=== PATIENT | female | born 1990 | race Caucasian/White ===

== ENCOUNTER 2017-01-26 12:01 | Emergency (ER) | payer SELFPAY ==
[2017-01-26] MEDS ORDERED: ACETAMINOPHEN 325 MG TABLET PO ONE (12:54)
[2017-01-26] MEDS ORDERED: NORMAL SALINE 1000 ML 1,000 ML IV ONE (12:54)
--- NOTE | 2017-01-26 13:01 | ER Document Report ---
ED Medical Screen (RME) - General Chief Complaint: Headache Stated Complaint: HEADACHE Time Seen by Provider: 01/26/17 12:54 Notes: Patient states since Wednesday she has had a progressive headache that is bilateral frontal as well as facial pain. She also states that her neck is swollen that it is red in the front and that it is very tender. She states she cannot move her neck in any direction. She states she is also had vomiting and some subjective fever and chills. She is also had cough and congestion. TRAVEL OUTSIDE OF THE [place] IN LAST 30 DAYS: No - Related Data Allergies/Adverse Reactions: No Known Allergies Allergy (Verified 01/26/17 12:14) Past Medical History Renal/ Medical History: Denies: Hx Peritoneal Dialysis - Immunizations Hx Diphtheria, Pertussis, Tetanus Vaccination: No Physical Exam - Vital signs Vitals: Temp Pulse Resp BP Pulse Ox 99.1 F 125 H 20 118/81 86 L 01/26/17 12:15 01/26/17 12:15 01/26/17 12:15 01/26/17 12:15 01/26/17 12:15 Course - Vital Signs Vital signs: Temp Pulse Resp BP Pulse Ox 99.1 F 125 H 20 118/81 86 L 01/26/17 12:15 01/26/17 12:15 01/26/17 12:15 01/26/17 12:15 01/26/17 12:15
[2017-01-26] MEDS ORDERED: MORPHINE SULFATE 10 MG/ML INJ IV ONE (13:42)
[2017-01-26 13:48] LABS: VENOUS BLOOD BASE EXCESS 4.6 mmol/L; VENOUS BLOOD HCO3 30.9 mmol/L (20-32); VENOUS BLOOD PCO2 53.7 mmHg (35-63); VENOUS BLOOD PH 7.38 (7.30-7.42)
[2017-01-26 13:51] LABS: PROTHROMBIN TIME 14.9 SEC (11.4-15.4)
[2017-01-26 14:09] LABS: ALANINE AMINOTRANSFERASE 40 U/L (9-52); ALBUMIN 3.6 g/dL (3.5-5.0); ALKALINE PHOSPHATASE 130 U/L (38-126); ANION GAP 12 (5-19); ASPARTATE AMINO TRANSFERASE 41 U/L (14-36); BILIRUBIN,DIRECT 0.4 mg/dL (0.0-0.4); BILIRUBIN,TOTAL 0.7 mg/dL (0.2-1.3); BLOOD UREA NITROGEN 12 mg/dL (7-20); CALCIUM 9.8 mg/dL (8.4-10.2); CARBON DIOXIDE 29 mmol/L (22-30); CHLORIDE 96 mmol/L (98-107); CREATININE RESULT 0.73 mg/dL (0.52-1.25); GLUCOSE 105 mg/dL (75-110); POTASSIUM 3.3 mmol/L (3.6-5.0); SODIUM 137.4 mmol/L (137-145); TOTAL PROTEIN 6.6 g/dL (6.3-8.2)
[2017-01-26] MEDS ORDERED: CLINDAMYCIN 300 MG/D5W RTU 300 MG/50 ML RTUPB IV ONE (14:09)
--- NOTE | 2017-01-26 14:16 | ER Document Report ---
ED General - General Chief Complaint: Headache Stated Complaint: HEADACHE Time Seen by Provider: 01/26/17 12:54 Mode of Arrival: Ambulatory Information source: Patient, Relative Notes: 26-year-old female presents with complaints of fever body aches sore throat headaches nausea. Symptoms have been ongoing intermittently for the past month over the past 3-4 days symptoms have worsened neck pain has worsened. Patient admits difficulty swallowing TRAVEL OUTSIDE OF THE [place] IN LAST 30 DAYS: No - HPI Onset: Other Onset/Duration: Persistent, Worse Quality of pain: Achy Severity: Moderate Pain Level: 4 Associated symptoms: Body/muscle aches, Productive cough, Fever, Headache, Nausea, Vomiting, Sinus pain/drainage, Shortness of breath, Sweating, Weakness Exacerbated by: Denies Relieved by: Denies Similar symptoms previously: No Recently seen / treated by doctor: No - Related Data Allergies/Adverse Reactions: No Known Allergies Allergy (Verified 01/26/17 12:14) Home Medications: Current Home Medications Ashwagandha Root 1 tab PO DAILY 01/26/17 [History] Cholecalciferol (Vitamin D3) [Vitamin D3 5000 unit Capsule] 10,000 unit PO DAILY 01/26/17 [History] Cyanocobalamin (Vitamin B-12) [Vitamin B-12 SL 1000 mcg Tablet] 2,000 mcg SL DAILY 01/26/17 [History] [place]'s Wort 150 mg PO DAILY 01/26/17 [History] Past Medical History - Social History Smoking Status: Never Smoker Cigarette use (# per day): No Chew tobacco use (# tins/day): No Smoking Education Provided: No Family History: Reviewed & Not Pertinent Patient has suicidal ideation: No Patient has homicidal ideation: No Renal/ Medical History: Denies: Hx Peritoneal Dialysis - Immunizations Hx Diphtheria, Pertussis, Tetanus Vaccination: No Review of Systems - Review of Systems Notes: REVIEW OF SYSTEMS: CONSTITUTIONAL : Admits fevers chills EENT: Admits to difficulty swallowing painful neck CARDIOVASCULAR: Denies chest pain. Denies palpitations or racing or irregular heart beat. Denies ankle edema. RESPIRATORY: Admits to cough productive GASTROINTESTINAL: Denies abdominal pain or distention. Denies nausea, vomiting , or diarrhea. Denies blood in vomitus, stools, or per rectum. Denies black, tarry stools. Denies constipation. GENITOURINARY: Denies difficulty urinating, painful urination, burning, frequency, blood in urine, or discharge. FEMALE GENITOURINARY: Denies vaginal bleeding, heavy or abnormal periods, irregular periods. Denies vaginal discharge or odor. MUSCULOSKELETAL: Admits to body aches SKIN: Denies rash, lesions or sores. HEMATOLOGIC : Denies easy bruising or bleeding. LYMPHATIC: Denies swollen, enlarged glands. NEUROLOGICAL: Admits headache PSYCHIATRIC: Denies anxiety or stress. Denies depression, suicidal ideation, or homicidal ideation. ALL OTHER SYSTEMS REVIEWED AND NEGATIVE. PHYSICAL EXAMINATION: GENERAL: Very ill-appearing 26-year-old female HEAD: Atraumatic, normocephalic. EYES: Pupils equal round and reactive to light, extraocular movements intact, conjunctiva are normal. ENT: exudates JVD NECK: Bilateral lymphadenopathy tenderness on palpation LUNGS: Breath sounds clear to auscultation bilaterally and equal. No wheezes rales or rhonchi. HEART: Tachycardic ABDOMEN: Soft, nontender, nondistended abdomen. No guarding, no rebound. No masses appreciated. Female : deferred Musculoskeletal: Normal range of motion, no pitting or edema. No cyanosis. NEUROLOGICAL: Cranial nerves grossly intact. Normal speech, normal gait. Normal sensory, motor exams PSYCH: Normal mood, normal affect. SKIN: Anterior neck is extremely erythematous Dictation was performed using [employer] voice recognition software Physical Exam - Vital signs Vitals: Temp Pulse Resp BP Pulse Ox 99.1 F 125 H 20 118/81 86 L 01/26/17 12:15 01/26/17 12:15 01/26/17 12:15 01/26/17 12:15 01/26/17 12:15 Course - Re-evaluation Re-evalutation: 01/26/17 14:18 This is an extremely ill-appearing 26-year-old female my concerns are for a abscess in the anterior neck versus meningitis versus tonsillitis. Lab work pending 01/26/17 16:12 Patient had initially been accepted by the hospitalist but after he evaluated the patient is concerned about myocarditis versus endocarditis he requests transfer Susy and [facility] paged both paged 01/26/17 16:30 Susy Augustin accept but 25 patients waiting 01/26/17 16:32 01/26/17 16:33 New [facility] paged 01/26/17 16:40 [facility] unsure but believes it is a strep viridens requests I add vancomycin 01/26/17 16:42 01/26/17 16:[address] [facility] [address] Yoder will accept for rapid transport 01/26/17 17:28 Gabrielcherise called back I explained to them we have accepting physician, 01/26/17 17:54 Patient is stable at this time heart rate is now 109 - Vital Signs Vital signs: Temp Pulse Resp BP Pulse Ox 99.1 F 125 H 20 124/75 98 01/26/17 12:15 01/26/17 12:15 01/26/17 17:01 01/26/17 17:01 01/26/17 17:01 - Laboratory Result Diagrams: 01/26/17 14:20 01/26/17 13:28 Laboratory results interpreted by me: 01/26/17 01/26/17 01/26/17 13:28 14:20 16:20 WBC 18.3 H Hgb 11.9 L Hct 35.3 L Seg Neuts % (Manual) 79 H Band Neutrophils % 10 H Lymphocytes % (Manual) 5 L Abs Neuts (Manual) 16.3 H Potassium 3.3 L Chloride 96 L AST 41 H Alkaline Phosphatase 130 H Urine Blood SMALL H - Diagnostic Test Radiology reviewed: Image reviewed, Reports reviewed - EKG Interpretation by Me EKG shows normal: Sinus rhythm, [place], Intervals, QRS Complexes Rate: Tachycardia Critical Care Note - Critical Care Note Total time excluding time spent on procedures (mins): 34 Comments: 34 minutes of critical care time spent in direct contact evaluating and reevaluating the patient, treating symptoms, reviewing labs and studies and speaking with family and consultants excluding any procedures Discharge - Discharge Clinical Impression: Neck pain Sepsis Qualifiers: Qualified Code(s): A41.9 - Cellulitis Qualifiers: Site of cellulitis: neck Qualified Code(s): L03.221 - Cellulitis of neck Condition: Fair Disposition: ADMITTED INPATIENT Admitting Provider: Hospitalist Unit Admitted: Telemetry
[2017-01-26 14:45] LABS: HEMATOCRIT 35.3 % (36.0-47.0); HEMOGLOBIN 11.9 g/dL (12.0-15.5); HGB HCT DIFFERENCE 0.4; MEAN CORPUSCULAR HEMOGLOBIN 30.8 pg (27.0-33.4); MEAN CORPUSCULAR HGB CONC 33.7 g/dL (32.0-36.0); MEAN CORPUSCULAR VOLUME 91 fl (80-97); RED BLOOD COUNT 3.87 10^6/uL (3.72-5.28); RED CELL DISTRIBUTION WIDTH 13.5 % (11.5-14.0); WHITE BLOOD COUNT 18.3 10^3/uL (4.0-10.5)
[2017-01-26 15:07] LABS: BAND NEUTROPHILS % (MANUAL) 10 % (3-5); BASOPHILS % (MANUAL) 0 % (0-2); EOSINOPHILS % (MANUAL) 2 % (0-6); LYMPHOCYTES % (MANUAL) 5 % (13-45); TOTAL CELLS COUNTED 100
[2017-01-26 15:08] LABS: TOXIC GRANULATION 1+; TOXIC VACUOLATION PRESENT
[2017-01-26 15:10] LABS: POLYCHROMASIA SLIGHT
[2017-01-26] MEDS: NORMAL SALINE 1000 ML 1,000 ML IV PRN ×2 (15:16→16:10)
[2017-01-26] MEDS ORDERED: HYDROMORPHONE HCL INJ/PF 2 MG/ML AMPULE IV ONE ×3 (15:19→19:25)
--- NOTE | 2017-01-26 15:37 | RADIOLOGY REPORT (SQ) ---
EXAM DESCRIPTION: CT SOFT TISSUE NECK WITH COMPLETED DATE/TIME: 01/26/2017 2:53 pm REASON FOR STUDY: fever, throat pain headache 1 month history not feeling right, anterior neck pain COMPARISON: None. TECHNIQUE: Post IV contrasted scanning from skull base through lung apices with review of bone, soft tissue and lung windows. Reconstructed coronal and sagittal MPR images reviewed. All images stored on PACS. All CT scanners at this facility use dose modulation, iterative reconstruction, and/or weight based d osing when appropriate to reduce radiation dose to as low as reasonably achievable (ALARA). [facility]: Dose Right [facility]: CareDose [facility]: Dose Right [facility]: Teradose 4D [facility]: [employer] CONTRAST TYPE AND DOSE: contrast/concentration: Isovue 370.00 mg/ml; Total Contrast Delivered: 75.0 ml; Total Saline Delivered: 44.3 ml RENAL FUNCTION: None required. The patient is less than 50 years old. RADIATION DOSE: 8.9 mGy . LIMITATIONS: None. FINDINGS: On axial image S 67 through 100, areas skin thickening and stranding in the subcutaneous f at along the lower anterior neck in the suprasternal notch region. There is some inflammatory strand ing of the fat in the anterior aspect of the thoracic inlet/upper mediastinum on axial images 89-103. No well circumscribed abscess. No sternoclavicular joint erosions. There is mild cervical adenopathy left greater than right likely reactive. On the right side, index lymph nodes are as follows: Right carotid space 1.5 x 1.2 cm axial image 40 Right carotid space 1.1 x 0.6 cm axial image 48 Right carotid space 0.8 x 0.5 cm axial image 55 Index left neck lymph nodes are as follows: Left posterior triangle 1.4 x 0.6 cm image 33 Left posterior triangle 2 x 0.9 cm image 36 Left carotid space 1.2 x 0.9 cm image 42 Left carotid space 1.5 x 0.8 cm image 48 Left carotid space 1.4 x 0.6 cm image 53 These findings were discussed with Dr. Kincaid in the emergency room SKULL BASE: Intact. MAJOR SALIVARY GLANDS: No solid or cystic masses. No inflammatory changes. LYMPHADENOPATHY: As above MUCOSAL MASSES OR ASYMMETRY: No mucosal masses or asymmetry. No inflammatory change or abscess in th e parapharyngeal fat. No prevertebral phlegmon or edema LARYNX/CORDS: No abnormal findings. VASCULAR STRUCTURES: The major vessels are patent. No superficial venous thrombosis is seen LUNG APICES: Clear. BONES: Intact. THYROID: Normal size. No masses. PARANASAL SINUSES: Clear. OTHER: No other significant finding. IMPRESSION: Cellulitis in the soft tissues of the low anterior neck in the region of the sternoclavi cular notch. No aggressive bony erosions worrisome for osteomyelitis or septic arthritis at the ster noclavicular joints. Mild cervical adenopathy. Send TECHNICAL DOCUMENTATION: JOB ID: [id number] Quality ID # [id number]: Final reports with documentation of one or more dose reduction techniques (e.g., Au tomated exposure control, adjustment of the mA and/or kV according to patient size, use of iterative reconstruction technique) 2010 [employer]- All Rights Reserved
--- NOTE | 2017-01-26 15:41 | RADIOLOGY REPORT (SQ) ---
EXAM DESCRIPTION: CT HEAD WITHOUT AND WITH CONTRAST COMPLETED DATE/TIME: 01/26/2017 2:53 pm REASON FOR STUDY: fever, throat pain headache COMPARISON: Soft tissue neck CT with contrast same date TECHNIQUE: Axial images acquired through the brain without and with intravenous contrast. Images rev iewed with bone, brain and subdural windows. Images stored on PACS. All CT scanners at this facility use dose modulation, iterative reconstruction, and/or weight based d osing when appropriate to reduce radiation dose to as low as reasonably achievable (ALARA). [facility]: Dose Right [facility]: CareDose [facility]: Dose Right [facility]: Teradose 4D [facility]: [employer] CONTRAST TYPE AND DOSE: 75 mL IV Isovue 370- low osmolar. RENAL FUNCTION: Creatinine 0.73 RADIATION DOSE: Up-to-date CT equipment and radiation dose reduction techniques were employed. CTDIv ol: 8.9 - 64.6 mGy. DLP: 2596 mGy-cm.. LIMITATIONS: None. FINDINGS: VENTRICLES: Normal size and contour. CEREBRUM: No masses. No hemorrhage. No midline shift. Normal kinsey/white matter differentiation. No ev idence for acute infarction. No enhancing lesions. CEREBELLUM: No masses. No hemorrhage. No alteration of density. No evidence for acute infarction. No enhancing lesions. EXTRA-AXIAL SPACES: No fluid collections. No enhancing lesions. ORBITS AND GLOBE: No intra- or extraconal masses. Normal contour of globe without masses. CALVARIUM: No fracture. PARANASAL SINUSES: No fluid or mucosal thickening. SOFT TISSUES: No mass or hematoma. OTHER: No other significant finding. IMPRESSION: NORMAL BRAIN CT WITHOUT AND WITH CONTRAST. TECHNICAL DOCUMENTATION: JOB ID: [id number] Quality ID # [id number]: Final reports with documentation of one or more dose reduction techniques (e.g., Au tomated exposure control, adjustment of the mA and/or kV according to patient size, use of iterative reconstruction technique) 2010 [employer]- All Rights Reserved
--- NOTE | 2017-01-26 15:41 | RADIOLOGY REPORT (SQ) ---
EXAM DESCRIPTION: CHEST PA/LAT COMPLETED DATE/TIME: 01/26/2017 2:56 pm REASON FOR STUDY: fever COMPARISON: None. EXAM PARAMETERS: NUMBER OF VIEWS: two views TECHNIQUE: Digital Frontal and Lateral radiographic views of the chest acquired. RADIATION DOSE: NA LIMITATIONS: none FINDINGS: LUNGS AND PLEURA: No opacities, masses or pneumothorax. No pleural effusion. MEDIASTINUM AND HILAR STRUCTURES: No masses or contour abnormalities. HEART AND VASCULAR STRUCTURES: Heart normal size. No evidence for failure. BONES: No acute findings. HARDWARE: None in the chest. OTHER: No other significant finding. IMPRESSION: NO SIGNIFICANT RADIOGRAPHIC FINDING IN THE CHEST. TECHNICAL DOCUMENTATION: JOB ID: [id number] [employer] All Rights Reserved
[2017-01-26] MEDS ORDERED: VANCOMYCIN HCL INJ 1000 MG VIAL IV ONE (16:41)
[2017-01-26 16:43] LABS: APPEARANCE,URINE CLEAR; BILIRUBIN,URINE NEGATIVE (NEGATIVE); GLUCOSE, URINE NEGATIVE (NEGATIVE); KETONES,URINE NEGATIVE (NEGATIVE); LEUKOCYTE ESTERASE,URINE NEGATIVE (NEGATIVE); NITRITE,URINE NEGATIVE (NEGATIVE); PROTEIN,URINE NEGATIVE (NEGATIVE); URINE SPECIFIC GRAVITY 1.032; UROBILINOGEN,URINE NEGATIVE mg/dL (<2.0)
[2017-01-26 17:01] LABS: URINE BARBITURATES SCREEN NEGATIVE; URINE METHADONE SCREEN NEGATIVE; URINE OPIATES LOW UNCONFIRMED POSITIVE; URINE PHENCYCLIDINE SCREEN NEGATIVE
--- NOTE | 2017-01-26 17:08 | PDOC CONSULTATION ---
Consultation Consult Date: 01/26/17 Attending physician:: OSCAR SEVERINO Consult reason:: Anterior Neck Cellulitis History of Present Illness Admission Date/PCP: 01/26/17 16:04 No PCP Patient complains of: Shortness of breath, fever, Headache, difficulty swallowing for 1 week History of Present Illness: ROLANDA ESCBOAR is a 26 year old female who presented to the hospital from home for shortness of breath, difficulty swallowing, and neck swelling that started on Wednesday. Pt states that she has been sick for one month prior to presenting to the hospital. Pt states that she had fever and fatigue during that month. Pt states that she has noticed that she has become more short of breath with exertion ie walking up stairs and walking around house. Pt states that she did not go to a physician due to not having insurance. Pt became agitated stating that she has been asked these questions before and does not know why I am asking these questions. Pt then stated that her head is hurting. Pt was asked if she had sore throat, chills, nausea, vomiting and pt stated that she does not remember because it has been to long. Pt states that she came today because she noted that she had worsening neck swelling and difficulty swallowing. 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 Pt states that she has had a lot of problems with sinus drainage and congestion. Pt states that nasal drainage is orange/ green in color. Pt states that she has a severe headache and would like to be left alone. Past Medical History Cardiac Medical History: Reports: None Pulmonary Medical History: Reports: None EENT Medical History: Reports: None Neurological Medical History: Reports: Migraine Endocrine Medical History: Reports: None Renal/ Medical History: Reports: None Malignancy Medical History: Reports: None GI Medical History: Reports: None Skin Medical History: Reports: None Psychiatric Medical History: Reports: None Infectious Medical History: Reports: None Past Surgical History Past Surgical History: Reports: None Social History Information Source: Patient Lives with: Family Smoking Status: Never Smoker Frequency of Alcohol Use: Rare Hx Recreational Drug Use: No Drugs: None Hx Prescription Drug Abuse: No Family History Family History: Reviewed & Not Pertinent Parental Family History Reviewed: Yes Children Family History Reviewed: NA Sibling(s) Family History Reviewed.: Yes Medication/Allergy Allergies/Adverse Reactions: No Known Allergies Allergy (Verified 01/26/17 12:14) Review of Systems Constitutional: PRESENT: fatigue, fever(s), headache(s), weakness Eyes: PRESENT: other - +eye sensitivity Ears: ABSENT: hearing changes Nose, Mouth, and Throat: PRESENT: sore throat Breasts: PRESENT: as per HPI, other Cardiovascular: PRESENT: dyspnea on exertion, other - shortness of breath Respiratory: PRESENT: dyspnea Gastrointestinal: ABSENT: abdominal pain, constipation, diarrhea, hematemesis, hematochezia, nausea, vomiting Genitourinary: ABSENT: dysuria, hematuria Musculoskeletal: PRESENT: other - +neck pain and swelling Neurological: ABSENT: abnormal gait, abnormal speech, confusion, dizziness, focal weakness, syncope Psychiatric: ABSENT: anxiety, depression, homidical ideation, suicidal ideation Endocrine: ABSENT: cold intolerance, heat intolerance, polydipsia, polyuria Hematologic/Lymphatic: ABSENT: easy bleeding, easy bruising Physical Exam Vital Signs: Temp Pulse Resp BP Pulse Ox 99.1 F 125 H 18 121/82 100 01/26/17 12:15 01/26/17 12:15 01/26/17 15:34 01/26/17 15:34 01/26/17 15:34 General appearance: PRESENT: mild distress, well-developed, well-nourished, other - JVD noted at 45 degree incline, tearful Head exam: PRESENT: atraumatic, normocephalic Eye exam: PRESENT: conjunctiva pink, EOMI. ABSENT: scleral icterus Ear exam: PRESENT: normal external ear exam Mouth exam: PRESENT: other - + erythema of neck with LAD anterior and posterior LAD Throat exam: PRESENT: tonsillar erythema Neck exam: PRESENT: JVD - at 45 degree incline Respiratory exam: PRESENT: accessory muscle use, tachypnea Cardiovascular exam: PRESENT: tachycardia, other - JVD at 45 degree incline Vascular exam: PRESENT: normal capillary refill GI/Abdominal exam: PRESENT: normal bowel sounds, soft. ABSENT: distended, guarding, mass, organolmegaly, rebound, tenderness Rectal exam: PRESENT: deferred Neurological exam: PRESENT: alert, awake, oriented to person, oriented to place , oriented to time, oriented to situation, CN II-XII grossly intact Psychiatric exam: PRESENT: agitated Skin exam: PRESENT: other - erythema of anterior neck Results Impressions: Chest X-Ray 01/26/17 13:42 IMPRESSION: NO SIGNIFICANT RADIOGRAPHIC FINDING IN THE CHEST. Head CT 01/26/17 14:10 IMPRESSION: NORMAL BRAIN CT WITHOUT AND WITH CONTRAST. Soft Tissue Neck CT 01/26/17 14:10 IMPRESSION: Cellulitis in the soft tissues of the low anterior neck in the region of the sternoclavicular notch. No aggressive bony erosions worrisome for osteomyelitis or septic arthritis at the sternoclavicular joints. Mild cervical adenopathy. Send Assessment & Plan - Diagnosis (1) Sepsis Qualifiers: Qualified Code(s): A41.9 - Sepsis, unspecified organism Is this a current diagnosis for this admission?: Yes Plan: Suspect GBS vs Viral etiology: Pt was given Vancomycin and Clindamycin. (2) Cellulitis Qualifiers: Site of cellulitis: neck Qualified Code(s): L03.221 - Cellulitis of neck Is this a current diagnosis for this admission?: Yes Plan: Pt given Vancomycin and Clindamycin. (4) Endocarditis Qualifiers: Endocarditis type: unspecified Is this a current diagnosis for this admission?: Yes Plan: Concern for Endocarditis: Pt with JVD on exam. Pt needs state echo. (5) Leukocytosis Qualifiers: Leukocytosis type: unspecified Qualified Code(s): D72.829 - Elevated white blood cell count, unspecified Is this a current diagnosis for this admission?: Yes Plan: Pt given Vanco and Clindamycin. (6) Hypokalemia Is this a current diagnosis for this admission?: Yes Plan: Per ER - Time Time Spent: 30 to 50 Minutes - Recommendated transfer to Tertiary Facility due to Concern for Endocarditis vs Cardiomyopathy. Pt would also benefit from ID.
[2017-01-26 19:48] VITALS: BP 107/67
--- NOTE | 2017-01-27 19:54 | EKG REPORT ---
SEVERITY:- BORDERLINE ECG - SINUS TACHYCARDIA PROBABLE LEFT ATRIAL ABNORMALITY BORDERLINE T ABNORMALITIES, ANTERIOR LEADS : Confirmed by: Antonio Hendrix MD 27-Jan-2017 19:53:59
== END 2017-01-26 19:47 | disposition short-term general hospital (02) ==
LOC: ER 12:01 → UNDOADMIN 16:04 → EH 16:04 → UNDOADMIN 17:15 → EH 17:15 → UNDODISIN 19:46 → EH 19:47 → ER 19:47
DX: R51 Headache (principal); A41.9 Sepsis, unspecified organism; L03.221 Cellulitis of neck; R11.0 Nausea; M79.1 Myalgia; D72.829 Elevated white blood cell count, unspecified; E87.6 Hypokalemia; I38 Endocarditis, valve unspecified
CPT/HCPCS: 93005; 96376; 99291; 96361; 96375; 96365; 96366; 96367; 36415; 87040; 87070; 87086; 87880; 84443; 85025; 85610; 81025; 86308; 80053; 81001; 80307; 82803; 83605; 71020; 70460; 70491; 93010; J3490; J2270; J1170; J7030; J3370

== ENCOUNTER → 2019-06-28 | Outpatient (CLI) | payer SELFPAY ==
--- NOTE | 2019-06-28 14:54 | RADIOLOGY REPORT (SQ) ---
EXAM DESCRIPTION: U/S LF1BPCA TRNABD 1GES W/ODOP COMPLETED DATE/TIME: 06/28/2019 12:33 pm REASON FOR STUDY: Z34.02 ENCNTR FOR SUPRVSN OF NORMAL FIRST PREG, SECOND TRIMESTER Z34.02 ENCNTR FO R SUPRVSN OF NORMAL FIRST PREG, SECOND TRIME. . No current complaints with the . Patient does take long-term antiseizure medication. COMPARISON: None. TECHNIQUE: Transabdominal static and realtime grayscale images acquired of the pelvis. Additional se lected spectral and color Doppler images recorded. All images stored on PACs. bHCG: Not available CLINICAL DATES: LMP 03/24/2019 for clinical gestational age is 13 weeks 5 days with expected date of delivery 12/29/2019 LIMITATIONS: None. FINDINGS: FETUS: Single Living intrauterine . ULTRASOUND EGA: 12 weeks 6 days ULTRASOUND KRYSTLE: 01/04/2020 EFW: Not applicable less than 20 weeks. CRL: 6.48 cm FHR: 160 beats per minute. SURVEY: Limited evaluation of the anatomy due to early gestational age. To brain i s abnormal in contour with appearance of slight flattening of the superior aspect of the head. Possi ble cystic regions at the nuchal fold, indeterminate. AMNIOTIC FLUID: Subjectively, there appears to be a reduced amount of amniotic fluid, with FRANKI measur ing 5.1 cm, somewhat limited evaluation due to early gestational age. The gestational sac has a curv ilinear contour, somewhat abnormal in appearance for this gestational age. PLACENTA: Posterior. SUBCHORIONIC BLEED: No SIZE OF BLEED: Not applicable. UTERUS: No masses. No anomalies. CERVICAL LENGTH: Not measured. Closed. RIGHT ADNEXA: Right ovary is not visualized. No adnexal mass. No adnexal free fluid. No adnexal masses. LEFT ADNEXA: Left ovary is not visualized. No adnexal free fluid. No adnexal masses. FREE FLUID: None. OTHER: No other significant finding. IMPRESSION: Single live intrauterine of gestational age 12 weeks 6 days. Although this is an early 1st trimester , there appears to be abnormal contour of the brain and possible cys tic region at the nuchal fold, indeterminate on this examination. Recommend high risk obst etric (Maternal ) consultation and level 3 obstetric ultrasound for complete evaluation. EGA 12 weeks 6 days Trimester of : First trimester - 0 to 13 weeks. COMMENT: Findings were communicated with MICHAEL Carrillo for the the ordering provider on 06/28/2019 at 143 0 hours. TECHNICAL DOCUMENTATION: JOB ID: [id number] [employer]- All Rights Reserved rev-10/08 Reading location - IP/workstation name: [email or web address]
== END ==
LOC: RAD 12:44
PROVIDERS: ATTEND Midwife
DX: Z34.02 Encounter for supervision of normal first pregnancy, second trimester (principal)
CPT/HCPCS: 76801

== ENCOUNTER 2019-09-15 13:37 | Outpatient (CLI) | payer MEDICAID ==
[2019-09-15 14:05] LABS: APPEARANCE,URINE SLIGHTLY-CLOUDY; BILIRUBIN,URINE NEGATIVE (NEGATIVE); COLOR,URINE YELLOW; GLUCOSE, URINE NEGATIVE (NEGATIVE); KETONES,URINE NEGATIVE (NEGATIVE); LEUKOCYTE ESTERASE,URINE NEGATIVE (NEGATIVE); NITRITE,URINE NEGATIVE (NEGATIVE); PROTEIN,URINE NEGATIVE (NEGATIVE); URINE SPECIFIC GRAVITY 1.009; UROBILINOGEN,URINE NEGATIVE mg/dL (<2.0)
[2019-09-15 14:28] LABS: URINE BARBITURATES SCREEN NEGATIVE; URINE BENZODIAZEPINES SCREEN NEGATIVE; URINE COCAINE SCREEN NEGATIVE; URINE MARIJUANA (THC) SCREEN NEGATIVE; URINE METHADONE SCREEN NEGATIVE; URINE PHENCYCLIDINE SCREEN NEGATIVE
[2019-09-15 14:44] LABS: URINE AMPHETAMINES SCREEN UNCONFIRMED POSITIVE
== END 2019-09-15 14:45 | disposition home or self-care (01) ==
LOC: LC 13:37
PROVIDERS: ATTEND Obstetrics & Gynecology
DX: O23.42 Unspecified infection of urinary tract in pregnancy, second trimester (principal); O36.8130 Decreased fetal movements, third trimester, not applicable or unspecified; Z3A.25 25 weeks gestation of pregnancy
CPT/HCPCS: 80307; 81001; 87086

== ENCOUNTER 2019-12-07 08:27 | Outpatient (CLI) | payer MEDICAID ==
[~2019-12-07 08:27] MED LIST: FERRIC CARBOXYMALTOSE 750 MG in NORMAL SALINE 250 ML IV PRN; NORMAL SALINE 250 ML IV PRN
[2019-12-07 09:09] VITALS: BP 134/90
== END 2019-12-07 09:53 | disposition home or self-care (01) ==
LOC: II 08:27 → 5TH 08:30 → II 09:53
PROVIDERS: ATTEND Student in an Organized Health Care Education/Training Program
DX: O99.019 Anemia complicating pregnancy, unspecified trimester (principal)
CPT/HCPCS: 96365; J7050; J1439

== ENCOUNTER 2019-12-14 08:10 | Outpatient (CLI) | payer MEDICAID ==
[2019-12-14 08:30] VITALS: BP 136/84
== END 2019-12-14 09:00 | disposition home or self-care (01) ==
LOC: II 08:10 → 5TH 08:14 → II 09:00
PROVIDERS: ATTEND Student in an Organized Health Care Education/Training Program
DX: O99.019 Anemia complicating pregnancy, unspecified trimester (principal)
CPT/HCPCS: 96365; J7050; J1439

== ENCOUNTER 2019-12-15 16:37 | Outpatient (CLI) | payer MEDICAID ==
[2019-12-15 17:32] LABS: APPEARANCE,URINE CLEAR; BILIRUBIN,URINE NEGATIVE (NEGATIVE); COLOR,URINE STRAW; GLUCOSE, URINE 150 mg/dL (NEGATIVE); KETONES,URINE NEGATIVE (NEGATIVE); LEUKOCYTE ESTERASE,URINE NEGATIVE (NEGATIVE); NITRITE,URINE NEGATIVE (NEGATIVE); PROTEIN,URINE NEGATIVE (NEGATIVE); URINE SPECIFIC GRAVITY 1.005; UROBILINOGEN,URINE NEGATIVE mg/dL (<2.0)
[2019-12-15 17:35] LABS: HEMATOCRIT 30.4 % (36.0-47.0); HEMOGLOBIN 10.4 g/dL (12.0-15.5); MEAN CORPUSCULAR HEMOGLOBIN 32.7 pg (27.0-33.4); MEAN CORPUSCULAR HGB CONC 34.3 g/dL (32.0-36.0); MEAN CORPUSCULAR VOLUME 96 fl (80-97); PLATELET COUNT 127 10^3/uL (150-450); RED BLOOD COUNT 3.18 10^6/uL (3.72-5.28); RED CELL DISTRIBUTION WIDTH 14.7 % (11.5-14.0); WHITE BLOOD COUNT 8.7 10^3/uL (4.0-10.5)
[2019-12-15 17:41] LABS: ALBUMIN 3.3 g/dL (3.5-5.0); ALKALINE PHOSPHATASE 148 U/L (38-126); ANION GAP 6 (5-19); ASPARTATE AMINO TRANSFERASE 32 U/L (14-36); BILIRUBIN,TOTAL 0.3 mg/dL (0.2-1.3); BLOOD UREA NITROGEN 5 mg/dL (7-20); CALCIUM 9.5 mg/dL (8.4-10.2); CARBON DIOXIDE 22 mmol/L (22-30); CHLORIDE 105 mmol/L (98-107); GLUCOSE 121 mg/dL (75-110); POTASSIUM 3.4 mmol/L (3.6-5.0); URIC ACID 2.6 mg/dL (2.5-6.2)
[2019-12-15 17:47] LABS: ABSOLUTE LYMPHOCYTES# (MANUAL) 1.1 10^3/uL (0.5-4.7); ABSOLUTE MONOCYTES # (MANUAL) 0.6 10^3/uL (0.1-1.4); BAND NEUTROPHILS % (MANUAL) 2 % (3-5); BASOPHILS % (MANUAL) 0 % (0-2); EOSINOPHILS % (MANUAL) 1 % (0-6); LYMPHOCYTES % (MANUAL) 13 % (13-45); METAMYELOCYTES % (MANUAL) 1 % (0-1); MONOCYTES % (MANUAL) 7 % (3-13); SEGMENTED NEUTROPHILS % (MAN) 76 % (42-78); TOTAL CELLS COUNTED 100
[2019-12-15 17:48] LABS: ANISOCYTOSIS SLIGHT; PLATELET COMMENT ADEQUATE
[2019-12-15 17:49] LABS: UR PRO/CREAT RATIO RESULT 0.8 mg/mg (0.0-0.2); URINE AMPHETAMINES SCREEN NEGATIVE; URINE BARBITURATES SCREEN NEGATIVE; URINE BENZODIAZEPINES SCREEN NEGATIVE; URINE COCAINE SCREEN NEGATIVE; URINE CREATININE 20.7 mg/dL (16-327); URINE MARIJUANA (THC) SCREEN NEGATIVE; URINE METHADONE SCREEN NEGATIVE; URINE PHENCYCLIDINE SCREEN NEGATIVE; URINE PROTEIN 15.9 mg/dL (<12)
--- NOTE | 2019-12-17 14:34 | Non Stress Test Report ---
Non Stress Test Datetime Report Generated by CPN: 12/17/2019 14:34 DEMOGRAPHIC Test Number: 1 EGA NST: 38.0 INDICATION Indication for Study (NST) Other: PIH workup VITAL SIGNS Temperature - NST: 98.0 Pulse - NST: 96 RESP - NST: 18 NBPSYS NST: 122 NBPDIA NST: 87 MONITORING Monitor Explained: Monitor Explained; Test Explained; Patient Verbalized Understanding Time on Monitor: 12/15/2019 17:00 Time off Monitor: 12/15/2019 17:58 NST Duration: 58 NST INTERVENTIONS NST Interventions: PO Hydration; Reposition Patient Physician Notified NST: Dr Contreras BABY A: [id number] BABY A Movement : Present Contraction Frequency : irregular FHR Baseline : 145 Accelerations : 15X15 Decelerations : None Variability : Moderate 6-25bpm NST Review: Meets Criteria for Reactive NST NST Review and Verified By : Jeff Prince RN NST Results: Reactive NST REPORT Report Trigger: Send Report
== END 2019-12-15 18:15 | disposition home or self-care (01) ==
LOC: LC 16:37
PROVIDERS: ATTEND Obstetrics & Gynecology
DX: Z36.89 Encounter for other specified antenatal screening (principal); Z3A.38 38 weeks gestation of pregnancy
CPT/HCPCS: 36415; 59025; 80053; 80307; 81001; 82570; 83615; 84156; 84550; 85025

== ENCOUNTER 2019-12-17 14:36 | Inpatient (IN) | payer MEDICAID ==
[2019-12-17 15:39] LABS: HEMATOCRIT 30.7 % (36.0-47.0); HEMOGLOBIN 10.8 g/dL (12.0-15.5); MEAN CORPUSCULAR HEMOGLOBIN 33.2 pg (27.0-33.4); MEAN CORPUSCULAR HGB CONC 35.2 g/dL (32.0-36.0); MEAN CORPUSCULAR VOLUME 94 fl (80-97); PLATELET COUNT 128 10^3/uL (150-450); RED BLOOD COUNT 3.25 10^6/uL (3.72-5.28); RED CELL DISTRIBUTION WIDTH 14.5 % (11.5-14.0)
[2019-12-17 15:53] LABS: ALBUMIN 3.8 g/dL (3.5-5.0); ALKALINE PHOSPHATASE 175 U/L (38-126); ANION GAP 6 (5-19); ASPARTATE AMINO TRANSFERASE 33 U/L (14-36); BILIRUBIN,TOTAL 0.3 mg/dL (0.2-1.3); BLOOD UREA NITROGEN 3 mg/dL (7-20); CALCIUM 9.5 mg/dL (8.4-10.2); CARBON DIOXIDE 22 mmol/L (22-30); CHLORIDE 107 mmol/L (98-107); GLUCOSE 81 mg/dL (75-110); POTASSIUM 3.6 mmol/L (3.6-5.0); TOTAL PROTEIN 6.6 g/dL (6.3-8.2); URIC ACID 2.8 mg/dL (2.5-6.2)
[2019-12-17 15:56] LABS: 24 HOUR URINE PROTEIN RESULT 755 mg/day (42-225); URINE PROTEIN 14.2 mg/dL (<12)
[2019-12-17 16:06] LABS: ABSOLUTE LYMPHOCYTES# (MANUAL) 1.6 10^3/uL (0.5-4.7); ABSOLUTE MONOCYTES # (MANUAL) 0.5 10^3/uL (0.1-1.4); ANISOCYTOSIS SLIGHT; BAND NEUTROPHILS % (MANUAL) 1 % (3-5); BASOPHILS % (MANUAL) 0 % (0-2); EOSINOPHILS % (MANUAL) 0 % (0-6); LYMPHOCYTES % (MANUAL) 16 % (13-45); MONOCYTES % (MANUAL) 5 % (3-13); SEGMENTED NEUTROPHILS % (MAN) 78 % (42-78); TOTAL CELLS COUNTED 100
[2019-12-17 16:07] LABS: PLATELET COMMENT DECREASED
[2019-12-17] MEDS ORDERED: PENICILLIN G POTASSIUM 5,000,000 UNIT in DEXTROSE 5%-WATER 100 ML IV ONE (16:37)
[2019-12-17] MEDS ORDERED: RINGERS SOLUTION,LACTATED 1,000 ML IV ONE (16:37)
[2019-12-17] MEDS ORDERED: RINGERS SOLUTION,LACTATED 1,000 ML IV PRN ×2 (16:37→16:39)
[2019-12-17] MEDS ORDERED: MAG HYDROX/AL HYDROX/SIMETH SUSP 30 ML UDCUP PO PRN (16:39)
[2019-12-17] MEDS ORDERED: RINGERS SOLUTION,LACTATED 300 ML IV ONE (16:39)
[2019-12-17] MEDS ORDERED: ACETAMINOPHEN 325 MG TABLET PO PRN (16:39)
[2019-12-17] MEDS ORDERED: ZOLPIDEM TARTRATE 5 MG TABLET PO PRN (16:39)
[2019-12-17] MEDS ORDERED: DINOPROSTONE 10 MG VAGINAL INSERT.SR PV ONE (16:39)
[2019-12-17] MEDS ORDERED: NORMAL SALINE 250 ML IV PRN ×2 (17:32)
--- NOTE | 2019-12-17 19:18 | Admission Physical ---
Datetime Report Generated by CPN: 12/17/2019 19:18 CURRENT ADMISSION Chief Complaint: Signs/Symptoms Gestational HTN Indication for Induction: PreEclampsia Admit Impression : Term, Intrauterine ; Intact Membranes Admit Plan: Admit to Unit ALLERGIES Medication Allergies: No Medication Allergies: No Known Allergies (12/17/2019) Latex: No Latex Allergies Food Allergies: none Environmental Allergies: none OBSTETRICAL HISTORY EDC: 12/29/2019 00:00 : 1 Para: 0 Term: 0 : 0 SAB: 0 IAB: 0 Ectopic: 0 Livin Cesareans: 0 VBACs: 0 Multiple Births: 0 Gestational Diabetes: No Rh Sensitization: No Incompetent Cervix: No ROXY: No Infertility: No ART Treatment: No Uterine Anomaly: No IUGR: No Hx Previous C/S: No Macrosomia: No Hx Loss/Stillborn: No PIH: Yes Hx : No Placenta Previa/Abruption: No Depression/PP Depression: Yes PTL/PROM: No Post Hemorrhage: No Current Procedures: Ultrasound Obstetrical History Comments: G1- current SEE RECORDS Alcohol: No Marijuana : No Cocaine: No Other Illicit Drugs: No Cigarettes: Current Everyday Smoker. 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: No Heart Disease: No Hosp/Surgery: Yes Autoimmune Disorder: No Anesthetic Complications: No Kidney Disease: Yes Abnormal Pap Smear: Yes Neuro/Epilepsy: Yes Psychiatric Disorders: Yes Other Medical Diseases: Yes Hepatitis/Liver Disease: No Significant Family History: No Varicosities/Phlebitis: No Trauma/Violence : No Thyroid Dysfunction: No Medical History Comments: bacterial meningitis and seizures-2016, migraines, vision loss, reactive airway disease- has inhaler, 2014 ASCUS, anemia, wisdom teeth removal- 15 years old, GERD, frequent UTIs, anxiety, depression, OCD, ADHD, 2010 pneumonia, smoker, head injury 2005. INFECTIOUS HISTORY Gonorrhea: No Genital Herpes: No Chlamydia: No Tuberculosis: No Syphilis: No Hepatitis: No HIV/AIDS Exposure: No Rash or Viral Illness: No HPV: Yes Infectious History Comments: +HPV 2010 PHYSICAL EXAM General: Normal HEENT: Normal Neurologic: Normal Thyroid: Normal Heart: Normal Lungs: Normal Breast: Deferred Back: Normal Abdomen: Normal Genitourinary Exam: Normal Extremities: Normal DTRs: Normal Pelvic Type: Adequate Vital Signs: Reviewed MEMBRANES Pooling: Negative Membranes: Intact FETUS A EGA: 38.2 Monitoring: External US FHR- Baseline: 140 Variability: Moderate 6-25bpm Decelerations: None FHR Category: Category I Presentation: Vertex Admit Comment: elevated bp in office and elevated 24 hour urine prot. Will proceed with cervadil. PLANS FOR LABOR AND DELIVERY Labor and Delivery: None Pain Management: Medications; Epidural Feeding Preference: Breast Benefit of Breast Feed Discussed: Yes Circumcision: Yes INFORMED CONSENT Signature: with User ID: [email or web address]
[2019-12-17] MEDS ORDERED: DINOPROSTONE 10 MG VAGINAL INSERT.SR ONE (19:29)
[2019-12-17 20:41] LABS: URINE AMPHETAMINES SCREEN NEGATIVE; URINE BARBITURATES SCREEN NEGATIVE; URINE BENZODIAZEPINES SCREEN NEGATIVE; URINE COCAINE SCREEN NEGATIVE; URINE MARIJUANA (THC) SCREEN NEGATIVE; URINE METHADONE SCREEN NEGATIVE; URINE PHENCYCLIDINE SCREEN NEGATIVE
[2019-12-17] MEDS ORDERED: MAG HYDROX/AL HYDROX/SIMETH SUSP 30 ML UDCUP PO ONE (20:48)
[2019-12-17] MEDS ORDERED: MAG HYDROX/AL HYDROX/SIMETH SUSP 30 ML UDCUP ONE (20:49)
[2019-12-17] MEDS: PENICILLIN G POTASSIUM 2,500,000 UNIT in DEXTROSE 5%-WATER 50 ML IV SCH (21:45)
[2019-12-17] MEDS: GUAIFENESIN 600 MG TABLET.SA PO SCH (21:53)
[2019-12-17] MEDS ORDERED: ZOLPIDEM TARTRATE 5 MG TABLET ONE (21:58)
[2019-12-18] MEDS ORDERED: ACETAMINOPHEN 325 MG TABLET ONE (04:48)
[2019-12-18] MEDS ORDERED: ACETAMINOPHEN 325 MG TABLET PO ONE (04:50)
[2019-12-18] MEDS: PENICILLIN G POTASSIUM 2,500,000 UNIT in DEXTROSE 5%-WATER 50 ML IV SCH ×2 (04:54→04:55)
[2019-12-18] MEDS ORDERED: OXYTOCIN 10 UNIT/ML VIAL ONE (07:35)
[2019-12-18] MEDS ORDERED: MISOPROSTOL 0.2 MG TABLET ONE (07:36)
[2019-12-18] MEDS ORDERED: OXYTOCIN/0.9 % SODIUM CHLORIDE 30 UNIT/500 ML RTUINJ ONE (07:36)
[2019-12-18] MEDS ORDERED: LIDOCAINE 1% INJ-PF (10 MG/ML) 30 ML SDV ONE (07:36)
[2019-12-18] MEDS ORDERED: BUTALB/ACETAMINOPHEN/CAFFEINE 1 TAB EACH PO ONE (08:31)
[2019-12-18] MEDS ORDERED: MAG HYDROX/AL HYDROX/SIMETH SUSP 30 ML UDCUP PO PRN (08:31)
[2019-12-18] MEDS ORDERED: BUTALB/ACETAMINOPHEN/CAFFEINE 1 TAB EACH ONE (08:46)
[2019-12-18] MEDS ORDERED: MAG HYDROX/AL HYDROX/SIMETH SUSP 30 ML UDCUP ONE (08:46)
[2019-12-18] MEDS: GUAIFENESIN 600 MG TABLET.SA PO SCH (09:26)
[2019-12-18 09:30] LABS: HEMATOCRIT 33.1 % (36.0-47.0); HEMOGLOBIN 11.3 g/dL (12.0-15.5); MEAN CORPUSCULAR HEMOGLOBIN 32.2 pg (27.0-33.4); MEAN CORPUSCULAR HGB CONC 34.2 g/dL (32.0-36.0); MEAN CORPUSCULAR VOLUME 94 fl (80-97); PLATELET COUNT 119 10^3/uL (150-450); RED BLOOD COUNT 3.51 10^6/uL (3.72-5.28); RED CELL DISTRIBUTION WIDTH 14.5 % (11.5-14.0); WHITE BLOOD COUNT 11.3 10^3/uL (4.0-10.5)
[2019-12-18 09:51] LABS: APPEARANCE,URINE CLEAR; BILIRUBIN,URINE NEGATIVE (NEGATIVE); COLOR,URINE COLORLESS; GLUCOSE, URINE 50 mg/dL (NEGATIVE); KETONES,URINE NEGATIVE (NEGATIVE); LEUKOCYTE ESTERASE,URINE NEGATIVE (NEGATIVE); NITRITE,URINE NEGATIVE (NEGATIVE); PROTEIN,URINE NEGATIVE (NEGATIVE); URINE SPECIFIC GRAVITY 1.003; UROBILINOGEN,URINE NEGATIVE mg/dL (<2.0)
--- NOTE | 2019-12-18 10:24 | PDOC DISCHARGE SUMMARY ---
Impression - Admit/DC Date/PCP Admission Date/Primary Care Provider: 12/17/19 16:51 Discharge Date: 12/18/19 - Discharge Diagnosis (1) Elevated blood pressure reading Is this a current diagnosis for this admission?: Yes - Additional Information Discharge Diet: Regular Discharge Activity: Activity As Tolerated Home Medications: Vits96/Iron Fum/Folic [ Tablet] 1 each PO DAILY 09/15/19 Guaifenesin [Mucinex] 1 tab PO DAILY 12/15/19 Lisdexamfetamine Dimesylate [Vyvanse] 1 tab PO DAILY 12/15/19 HPI Gestational Age: 38w3d Reason(s) for Admission: Induction of Labor Procedures: NST - reviewed strip and cat 1 overnight Intrapartum Procedure(s): Other - cervidil given overnight Hospital Course Hospital Course: admitted for IOL with one evevated BP 137/90. cervidil given overnight and no cervical change. discussed with RN, Dr Acuna, and pt, decision to go home and come in at 39w for IOL. left temporal headache treated with fioricet. Results Laboratory Results: WBC 11.3 10^3/uL (4.0-10.5) H 12/18/19 09:20 RBC 3.51 10^6/uL (3.72-5.28) L 12/18/19 09:20 Hgb 11.3 g/dL (12.0-15.5) L 12/18/19 09:20 Hct 33.1 % (36.0-47.0) L 12/18/19 09:20 MCV 94 fl (80-97) 12/18/19 09:20 MCH 32.2 pg (27.0-33.4) 12/18/19 09:20 MCHC 34.2 g/dL (32.0-36.0) 12/18/19 09:20 RDW 14.5 % (11.5-14.0) H 12/18/19 09:20 Plt Count 119 10^3/uL (150-450) L 12/18/19 09:20 Lymph % (Auto) Not Reportable 12/17/19 15:11 [place] % (Auto) Not Reportable 12/17/19 15:11 Eos % (Auto) Not Reportable 12/17/19 15:11 Baso % (Auto) Not Reportable 12/17/19 15:11 Absolute Neuts (auto) Not Reportable 12/17/19 15:11 Absolute Lymphs (auto) Not Reportable 12/17/19 15:11 Absolute Monos (auto) Not Reportable 12/17/19 15:11 Absolute Eos (auto) Not Reportable 12/17/19 15:11 Absolute Basos (auto) Not Reportable 12/17/19 15:11 Total Counted 100 12/17/19 15:11 Seg Neutrophils % Not Reportable 12/17/19 15:11 Seg Neuts % (Manual) 78 % (42-78) 12/17/19 15:11 Band Neutrophils % 1 % (3-5) L 12/17/19 15:11 Lymphocytes % (Manual) 16 % (13-45) 12/17/19 15:11 Monocytes % (Manual) 5 % (3-13) 12/17/19 15:11 Eosinophils % (Manual) 0 % (0-6) 12/17/19 15:11 Basophils % (Manual) 0 % (0-2) 12/17/19 15:11 Abs Neuts (Manual) 7.9 10^3/uL (1.7-8.2) 12/17/19 15:11 Abs Lymphs (Manual) 1.6 10^3/uL (0.5-4.7) 12/17/19 15:11 Abs Monocytes (Manual) 0.5 10^3/uL (0.1-1.4) 12/17/19 15:11 Absolute Eos (Manual) 0.0 10^3/uL (0.0-0.6) 12/17/19 15:11 Abs Basophils (Manual) 0.0 10^3/uL (0.0-0.2) 12/17/19 15:11 Platelet Comment DECREASED 12/17/19 15:11 Anisocytosis SLIGHT 12/17/19 15:11 Sodium 135.1 mmol/L (137-145) L 12/17/19 15:11 Potassium 3.6 mmol/L (3.6-5.0) 12/17/19 15:11 Chloride 107 mmol/L (98-107) 12/17/19 15:11 Carbon Dioxide 22 mmol/L (22-30) 12/17/19 15:11 Anion Gap 6 (5-19) 12/17/19 15:11 BUN 3 mg/dL (7-20) L 12/17/19 15:11 Creatinine 0.38 mg/dL (0.52-1.25) L 12/17/19 15:11 Est GFR ( Amer) > 60 (>60) 12/17/19 15:11 Est GFR (MDRD) Non-Af > 60 (>60) 12/17/19 15:11 Glucose 81 mg/dL (75-110) 12/17/19 15:11 Uric Acid 2.8 mg/dL (2.5-6.2) 12/17/19 15:11 Calcium 9.5 mg/dL (8.4-10.2) 12/17/19 15:11 Total Bilirubin 0.3 mg/dL (0.2-1.3) 12/17/19 15:11 Direct Bilirubin 0.0 mg/dL (0.0-0.4) 12/17/19 15:11 Neonat Total Bilirubin Not Reportable 12/17/19 15:11 Neonat Direct Bilirubin Not Reportable 12/17/19 15:11 Neonat Indirect Bili Not Reportable 12/17/19 15:11 AST 33 U/L (14-36) 12/17/19 15:11 ALT 21 U/L (<35) 12/17/19 15:11 Alkaline Phosphatase 175 U/L (38-126) H 12/17/19 15:11 Lactate Dehydrogenase 226 U/L (120-246) 12/17/19 15:11 Total Protein 6.6 g/dL (6.3-8.2) 12/17/19 15:11 Albumin 3.8 g/dL (3.5-5.0) 12/17/19 15:11 Urine Color COLORLESS 12/18/19 09:30 Urine Appearance CLEAR 12/18/19 09:30 Urine pH 7.0 (5.0-9.0) 12/18/19 09:30 Ur Specific [place] 1.003 12/18/19 09:30 Urine Protein NEGATIVE mg/dL (NEGATIVE) 12/18/19 09:30 Urine Glucose (UA) 50 mg/dL (NEGATIVE) H 12/18/19 09:30 Urine Ketones NEGATIVE mg/dL (NEGATIVE) 12/18/19 09:30 Urine Blood NEGATIVE (NEGATIVE) 12/18/19 09:30 Urine Nitrite NEGATIVE (NEGATIVE) 12/18/19 09:30 Urine Bilirubin NEGATIVE (NEGATIVE) 12/18/19 09:30 Urine Urobilinogen NEGATIVE mg/dL (<2.0) 12/18/19 09:30 Ur Leukocyte Esterase NEGATIVE (NEGATIVE) 12/18/19 09:30 Urine WBC (Auto) 0 /HPF 12/18/19 09:30 Urine RBC (Auto) 0 /HPF 12/18/19 09:30 Ur 24 Hour Volume 5320 mL 12/16/19 09:30 Ur Total Protein 24 Hr 755 mg/day (42-225) H 12/16/19 09:30 Urine Total Protein 14.2 mg/dL (<12) H 12/16/19 09:30 Urine Ascorbic Acid NEGATIVE (NEGATIVE) 12/18/19 09:30 Urine Opiates Screen NEGATIVE 12/17/19 19:34 Urine Methadone Screen NEGATIVE 12/17/19 19:34 Ur Barbiturates Screen NEGATIVE 12/17/19 19:34 Ur Phencyclidine Scrn NEGATIVE 12/17/19 19:34 Ur Amphetamines Screen NEGATIVE 12/17/19 19:34 U Benzodiazepines Scrn NEGATIVE 12/17/19 19:34 Urine Cocaine Screen NEGATIVE 12/17/19 19:34 U Marijuana (THC) Screen NEGATIVE 12/17/19 19:34 Blood Type O NEGATIVE 12/17/19 15:11 Blood Type Confirm O NEGATIVE 12/17/19 17:46 Antibody Screen POSITIVE 12/17/19 15:11 Antibody Identification RHOGAM INDUCED ANTI-D 12/17/19 15:11 Crossmatch See Detail 12/17/19 15:11 Plan Plan of Treatment: IOL thusday night with cervidil
--- NOTE | 2020-01-18 13:07 | Progress Note ---
Provider Note Provider Note: addendum to discharge summary: her diagnosis was preeclampsi per dr landry H&P Would be mild by definitions of ICD 10 codes. Also gestational thrombocytopenia.
== END 2019-12-18 10:18 | disposition home or self-care (01) | DRG 832 ==
LOC: LC 14:36 → LR 16:51
PROVIDERS: ADMIT Obstetrics & Gynecology; ATTEND Obstetrics & Gynecology
PROC: 3E0P7VZ Introduction of Hormone into Female Reproductive, Via Natural or Artificial Opening (ICD-10-PCS; principal; 2019-12-17)
DX: O14.03 Mild to moderate pre-eclampsia, third trimester (principal); O99.113 Other diseases of the blood and blood-forming organs and certain disorders involving the immune mechanism complicating pregnancy, third trimester; O26.893 Other specified pregnancy related conditions, third trimester; O99.333 Smoking (tobacco) complicating pregnancy, third trimester; F17.210 Nicotine dependence, cigarettes, uncomplicated; D69.6 Thrombocytopenia, unspecified; Z3A.38 38 weeks gestation of pregnancy
CPT/HCPCS: 36415; 59025; 80053; 80307; 81001; 83615; 84156; 84550; 85025; 85027; 86850; 86870; 86900; 86901; 86920; 86922; 87086; 94760; J2540; J2590; J3490; J7060

== ENCOUNTER 2019-12-21 20:16 | Inpatient (IN) | payer MEDICAID ==
[2019-12-21] MEDS ORDERED: MAG HYDROX/AL HYDROX/SIMETH SUSP 30 ML UDCUP PO PRN (20:36)
[2019-12-21] MEDS ORDERED: DINOPROSTONE 10 MG VAGINAL INSERT.SR PV ONE (20:36)
[2019-12-21] MEDS ORDERED: RINGERS SOLUTION,LACTATED 300 ML IV ONE (20:36)
[2019-12-21] MEDS ORDERED: ACETAMINOPHEN 325 MG TABLET PO PRN (20:36)
[2019-12-21] MEDS ORDERED: ZOLPIDEM TARTRATE 5 MG TABLET PO PRN (20:36)
--- NOTE | 2019-12-21 20:45 | Non Stress Test Report ---
Non Stress Test Datetime Report Generated by CPN: 12/21/2019 20:45 DEMOGRAPHIC EGA NST: 38.3 INDICATION Indication for Study (NST) Other: Provider Order VITAL SIGNS Temperature - NST: 97.9 Pulse - NST: 111 RESP - NST: 18 NBPSYS NST: 129 NBPDIA NST: 69 MONITORING Monitor Explained: Monitor Explained; Test Explained; Patient Verbalized Understanding Time on Monitor: 12/18/2019 09:41 Time off Monitor: 12/18/2019 10:01 NST Duration: 20 NST INTERVENTIONS NST Interventions: None Physician Notified NST: Dr. Armand BABY A: [id number] BABY A Contraction Frequency : x1 FHR Baseline : 140 Accelerations : 15X15 Decelerations : None Variability : Moderate 6-25bpm NST Review: Meets Criteria for Reactive NST NST Review and Verified By : Anna Tran RN NST Results: Reactive NST REPORT Report Trigger: Send Report
[2019-12-21] MEDS ORDERED: PENICILLIN G POTASSIUM 5,000,000 UNIT in DEXTROSE 5%-WATER 100 ML IV ONE (21:00)
[2019-12-21 21:15] LABS: HEMATOCRIT 30.1 % (36.0-47.0); HEMOGLOBIN 10.1 g/dL (12.0-15.5); MEAN CORPUSCULAR HEMOGLOBIN 32.3 pg (27.0-33.4); MEAN CORPUSCULAR HGB CONC 33.6 g/dL (32.0-36.0); MEAN CORPUSCULAR VOLUME 96 fl (80-97); PLATELET COUNT 126 10^3/uL (150-450); RED BLOOD COUNT 3.14 10^6/uL (3.72-5.28); RED CELL DISTRIBUTION WIDTH 15.4 % (11.5-14.0)
[2019-12-21] MEDS: RINGERS SOLUTION,LACTATED 1,000 ML IV PRN (21:15)
[2019-12-21] MEDS ORDERED: DINOPROSTONE 10 MG VAGINAL INSERT.SR ONE (21:22)
[2019-12-21 21:40] LABS: ABSOLUTE LYMPHOCYTES# (MANUAL) 1.8 10^3/uL (0.5-4.7); ABSOLUTE MONOCYTES # (MANUAL) 0.6 10^3/uL (0.1-1.4); BAND NEUTROPHILS % (MANUAL) 1 % (3-5); BASOPHILS % (MANUAL) 0 % (0-2); EOSINOPHILS % (MANUAL) 0 % (0-6); LYMPHOCYTES % (MANUAL) 15 % (13-45); MONOCYTES % (MANUAL) 5 % (3-13); SEGMENTED NEUTROPHILS % (MAN) 79 % (42-78); TOTAL CELLS COUNTED 100
[2019-12-21 21:41] LABS: ANISOCYTOSIS SLIGHT; PLATELET COMMENT DECREASED
[2019-12-21] MEDS ORDERED: BUTALB/ACETAMINOPHEN/CAFFEINE 1 TAB EACH PO ONE (21:57)
--- NOTE | 2019-12-21 21:58 | Admission Physical ---
Datetime Report Generated by CPN: 12/21/2019 21:58 CURRENT ADMISSION Chief Complaint: Scheduled Induction of Labor Indication for Induction: PreEclampsia Admit Impression : Term, Intrauterine ; Intact Membranes; Induction of Labor Admit Plan: Admit to Unit; Initiate Labor Induction Protocol ALLERGIES Medication Allergies: No Medication Allergies: No Known Allergies (12/17/2019) Latex: No Latex Allergies Food Allergies: none Environmental Allergies: none OBSTETRICAL HISTORY EDC: 12/29/2019 00:00 : 1 Para: 0 Term: 0 : 0 SAB: 0 IAB: 0 Ectopic: 0 Livin Cesareans: 0 VBACs: 0 Multiple Births: 0 Gestational Diabetes: No Rh Sensitization: No Incompetent Cervix: No ROXY: No Infertility: No ART Treatment: No Uterine Anomaly: No IUGR: No Hx Previous C/S: No Macrosomia: No Hx Loss/Stillborn: No PIH: Yes Hx : No Placenta Previa/Abruption: No Depression/PP Depression: Yes PTL/PROM: No Post Hemorrhage: No Current Procedures: Ultrasound Obstetrical History Comments: G1- current SEE RECORDS Alcohol: No Marijuana : No Cocaine: No Other Illicit Drugs: No Cigarettes: Current Everyday Smoker. 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 Heart Disease: No Hosp/Surgery: Yes Autoimmune Disorder: No Anesthetic Complications: No Kidney Disease: Yes Abnormal Pap Smear: Yes Neuro/Epilepsy: Yes Psychiatric Disorders: Yes Other Medical Diseases: Yes Hepatitis/Liver Disease: No Significant Family History: No Varicosities/Phlebitis: No Trauma/Violence : No Thyroid Dysfunction: No Medical History Comments: bacterial meningitis and 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 INFECTIOUS HISTORY Gonorrhea: No Genital Herpes: No Chlamydia: No Tuberculosis: No Syphilis: No Hepatitis: No HIV/AIDS Exposure: No Rash or Viral Illness: No HPV: Yes Infectious History Comments: +HPV 2010 PHYSICAL EXAM General: Normal HEENT: Normal Neurologic: Normal Thyroid: Normal Heart: Normal Lungs: Normal Breast: Deferred Back: Normal Abdomen: Normal Genitourinary Exam: Normal Extremities: Normal DTRs: Normal Pelvic Type: Adequate Vital Signs: Reviewed VAGINAL EXAM Dilatation: 1 Effacement: 50 Station: -3 MEMBRANES Pooling: Negative Membranes: Intact FETUS A EGA: 38.6 Monitoring: External US FHR- Baseline: 140 Variability: Moderate 6-25bpm Decelerations: None FHR Category: Category I Presentation: Vertex Admit Comment: Admit for induction PLANS FOR LABOR AND DELIVERY Labor and Delivery: None Pain Management: Medications; Epidural Feeding Preference: Breast Benefit of Breast Feed Discussed: Yes Circumcision: Yes INFORMED CONSENT Signature: with User ID: [email or web address]
[2019-12-21] MEDS ORDERED: BUTALB/ACETAMINOPHEN/CAFFEINE 1 TAB EACH ONE (21:59)
[2019-12-21 22:02] LABS: APPEARANCE,URINE CLEAR; BILIRUBIN,URINE NEGATIVE (NEGATIVE); COLOR,URINE STRAW; GLUCOSE, URINE >=500 mg/dL (NEGATIVE); KETONES,URINE NEGATIVE (NEGATIVE); LEUKOCYTE ESTERASE,URINE TRACE (NEGATIVE); NITRITE,URINE NEGATIVE (NEGATIVE); PROTEIN,URINE NEGATIVE (NEGATIVE); URINE SPECIFIC GRAVITY 1.006; UROBILINOGEN,URINE NEGATIVE mg/dL (<2.0)
[2019-12-21 22:17] LABS: URINE BENZODIAZEPINES SCREEN NEGATIVE; URINE COCAINE SCREEN NEGATIVE; URINE MARIJUANA (THC) SCREEN NEGATIVE; URINE METHADONE SCREEN NEGATIVE; URINE PHENCYCLIDINE SCREEN NEGATIVE
[2019-12-21 22:39] LABS: URINE AMPHETAMINES SCREEN UNCONFIRMED POSITIVE
[2019-12-21 22:40] LABS: URINE BARBITURATES SCREEN UNCONFIRMED POSITIVE
[2019-12-21] MEDS ORDERED: ZOLPIDEM TARTRATE 5 MG TABLET ONE (23:21)
[2019-12-22] MEDS ORDERED: DEXTROSE 5% IV SCH ×2
[2019-12-22] MEDS ORDERED: PENICILLIN POTASSIUM IV SCH ×2
[2019-12-22] MEDS ORDERED: WATER IV SCH ×2
[2019-12-22] MEDS ORDERED: PENICILLIN G POTASSIUM 2,500,000 UNIT in DEXTROSE 5%-WATER 50 ML IV SCH (00:40)
[2019-12-22] MEDS ORDERED: GUAIFENESIN 600 MG TABLET.SA PO ONE (01:00)
[2019-12-22] MEDS: RINGERS SOLUTION,LACTATED 1,000 ML IV PRN ×4 (05:03→23:01)
[2019-12-22] MEDS ORDERED: ACETAMINOPHEN 325 MG TABLET ONE ×2 (05:06→22:53)
[2019-12-22] MEDS: GUAIFENESIN 600 MG TABLET.SA PO SCH ×2 (09:24→23:02)
[2019-12-22] MEDS ORDERED: PENICILLIN G-K 5 MILLION UNIT VIAL ONE ×4 (09:56→22:53)
[2019-12-22] MEDS ORDERED: OXYTOCIN/0.9 % SODIUM CHLORIDE 30 UNIT/500 ML RTUINJ ONE ×2 (09:56→23:16)
[2019-12-22] MEDS ORDERED: MORPHINE SULFATE 10 MG/ML INJ ONE ×2 (11:35→15:39)
[2019-12-22] MEDS ORDERED: MORPHINE SULFATE 10 MG/ML INJ IV ONE ×2 (12:00→15:37)
[2019-12-22 12:11] LABS: ABSOLUTE LYMPHOCYTES (AUTO) 2.2 10^3/uL (0.5-4.7); ABSOLUTE MONOCYTES (AUTO) 1.1 10^3/uL (0.1-1.4); ABSOLUTE NEUT (AUTO) 8.8 10^3/uL (1.7-8.2); BASOPHILS % (AUTO) 0.2 % (0-2); EOSINOPHILS % (AUTO) 0.2 % (0-6); HEMATOCRIT 30.1 % (36.0-47.0); HEMOGLOBIN 10.5 g/dL (12.0-15.5); LYMPHOCYTES % (AUTO) 18.4 % (13-45); MEAN CORPUSCULAR HEMOGLOBIN 32.6 pg (27.0-33.4); MEAN CORPUSCULAR HGB CONC 34.9 g/dL (32.0-36.0); MEAN CORPUSCULAR VOLUME 93 fl (80-97); MONOCYTES % (AUTO) 8.9 % (3-13); PLATELET COUNT 128 10^3/uL (150-450); RED BLOOD COUNT 3.23 10^6/uL (3.72-5.28); RED CELL DISTRIBUTION WIDTH 14.8 % (11.5-14.0); SEGMENTED NEUTROPHILS % (AUTO) 72.3 % (42-78); TOTAL CELLS COUNTED % (AUTO) 100 %; WHITE BLOOD COUNT 12.1 10^3/uL (4.0-10.5)
[2019-12-22 12:32] LABS: BLOOD UREA NITROGEN 5 mg/dL (7-20); GLUCOSE 84 mg/dL (75-110)
[2019-12-22 12:33] LABS: ALBUMIN 3.2 g/dL (3.5-5.0); ALKALINE PHOSPHATASE 174 U/L (38-126); ANION GAP 7 (5-19); ASPARTATE AMINO TRANSFERASE 30 U/L (14-36); BILIRUBIN,TOTAL 0.3 mg/dL (0.2-1.3); CARBON DIOXIDE 17 mmol/L (22-30); CHLORIDE 110 mmol/L (98-107); POTASSIUM 3.7 mmol/L (3.6-5.0); TOTAL PROTEIN 6.1 g/dL (6.3-8.2); URIC ACID 3.1 mg/dL (2.5-6.2)
[2019-12-22] MEDS ORDERED: MAG HYDROX/AL HYDROX/SIMETH SUSP 30 ML UDCUP ONE ×2 (12:58→22:53)
[2019-12-22] MEDS: MAG HYDROX/AL HYDROX/SIMETH SUSP 30 ML UDCUP PO PRN ×2 (13:08→23:02)
[2019-12-22] MEDS: OXYTOCIN/0.9 % SODIUM CHLORIDE 30 UNIT/500 ML RTUINJ IV PRN (13:08)
[2019-12-22] MEDS: PENICILLIN G POTASSIUM 2,500,000 UNIT in DEXTROSE 5%-WATER 50 ML IV SCH ×3 (14:51→23:02)
[2019-12-22] MEDS ORDERED: PROMETHAZINE HCL INJ 25 MG/1 ML VIAL ONE (15:39)
[2019-12-22] MEDS: PROMETHAZINE HCL INJ 25 MG/1 ML VIAL IV ONE ×2 (16:00→18:10)
[2019-12-22] MEDS ORDERED: MAG HYDROX/AL HYDROX/SIMETH SUSP 30 ML UDCUP PO ONE (22:00)
[2019-12-22] MEDS ORDERED: ACETAMINOPHEN 325 MG TABLET PO ONE (22:00)
[2019-12-22] MEDS ORDERED: MISOPROSTOL 0.2 MG TABLET ONE (23:15)
[2019-12-22] MEDS ORDERED: OXYTOCIN 10 UNIT/ML VIAL ONE (23:15)
[2019-12-22] MEDS ORDERED: EPHEDRINE SULFATE INJ 50 MG/1 ML AMPULE ONE (23:15)
[2019-12-22] MEDS ORDERED: FENTANYL/BUPIVACAINE/NS/PF 300 MCG/150 ML RTUINJ EPI ONE (23:16)
[2019-12-22] MEDS ORDERED: ROPIVACAINE HCL 0.2% INJ/PF (2 MG/ML) 20 ML SDV ONE (23:16)
[2019-12-22] MEDS ORDERED: LIDOCAINE 1% INJ-PF (10 MG/ML) 30 ML SDV ONE (23:16)
[2019-12-23] MEDS ORDERED: ONDANSETRON HCL INJ/PF 4 MG/2 ML SDV IV ONE (01:14)
[2019-12-23] MEDS ORDERED: ONDANSETRON HCL INJ/PF 4 MG/2 ML SDV ONE (01:16)
[2019-12-23] MEDS ORDERED: PENICILLIN G-K 5 MILLION UNIT VIAL ONE ×3 (03:07→11:17)
[2019-12-23] MEDS: RINGERS SOLUTION,LACTATED 1,000 ML IV PRN (03:13)
[2019-12-23] MEDS: PENICILLIN G POTASSIUM 2,500,000 UNIT in DEXTROSE 5%-WATER 50 ML IV SCH ×7 (03:13→19:44)
[2019-12-23] MEDS: OXYTOCIN/0.9 % SODIUM CHLORIDE 30 UNIT/500 ML RTUINJ IV PRN (06:49)
[2019-12-23] MEDS ORDERED: MAG HYDROX/AL HYDROX/SIMETH SUSP 30 ML UDCUP ONE (09:33)
[2019-12-23] MEDS ORDERED: GUAIFENESIN 600 MG TABLET.SA PO SCH (10:00)
[2019-12-23] MEDS: MAG HYDROX/AL HYDROX/SIMETH SUSP 30 ML UDCUP PO PRN (10:04)
[2019-12-23] MEDS: GUAIFENESIN 600 MG TABLET.SA PO SCH ×2 (10:04→23:01)
[2019-12-23] MEDS ORDERED: ACETAMINOPHEN 325 MG TABLET ONE (11:34)
[2019-12-23] MEDS ORDERED: ACETAMINOPHEN 325 MG TABLET PO ONE (12:30)
[2019-12-23] MEDS ORDERED: MEASLES,MUMPS&RUBELLA VACC/PF 0.5 ML VIAL SUBCUT PRN (15:47)
[2019-12-23] MEDS ORDERED: DIBUCAINE 1% OINTMENT 28 GM TP PRN (15:47)
[2019-12-23] MEDS ORDERED: PSEUDOEPHEDRINE HCL 30 MG TABLET PO PRN (15:47)
[2019-12-23] MEDS ORDERED: NA PHOS,M-B/NA PHOS,DI-BA (ADULT) 133 ML ENEMA PR PRN (15:47)
[2019-12-23] MEDS ORDERED: ACETAMINOPHEN 650 MG SUPP.RECT PR PRN (15:47)
[2019-12-23] MEDS ORDERED: DIPH/PERTUSS(ACELL)/TETANUS VAC/PF 0.5 ML SYR (>=10YO) IM PRN (15:47)
[2019-12-23] MEDS ORDERED: OXYTOCIN/0.9 % SODIUM CHLORIDE 30 UNIT/500 ML RTUINJ IV PRN (15:47)
[2019-12-23] MEDS ORDERED: PROMETHAZINE HCL 25 MG TABLET PO PRN (15:47)
[2019-12-23] MEDS ORDERED: BENZOCAINE/MENTHOL AEROSOL SPRAY 56 ML TOP PRN (15:47)
[2019-12-23] MEDS ORDERED: GLYCERIN/WITCH HAZEL LEAF 1 EACH MED..WIPE TP PRN (15:47)
[2019-12-23] MEDS ORDERED: PROMETHAZINE HCL 25 MG SUPP.RECT PR PRN (15:47)
[2019-12-23] MEDS ORDERED: PROMETHAZINE HCL INJ 25 MG/1 ML VIAL IV PRN (15:47)
[2019-12-23] MEDS ORDERED: DIPHENHYDRAMINE HCL 25 MG CAPSULE PO PRN (15:47)
[2019-12-23] MEDS ORDERED: MAGNESIUM HYDROXIDE SUSP 30 ML UDCUP PO PRN (15:47)
[2019-12-23] MEDS ORDERED: ZOLPIDEM TARTRATE 5 MG TABLET PO PRN (15:47)
[2019-12-23] MEDS ORDERED: CEFTRIAXONE INJ 1000 MG VIAL ONE (16:44)
[2019-12-23] MEDS ORDERED: CEFTRIAXONE 1 GM/D5W RTU 1 GM/50 ML RTUPB IV ONE (16:49)
[2019-12-23] MEDS ORDERED: IBUPROFEN 800 MG TABLET ONE (17:13)
[2019-12-23] MEDS ORDERED: ACETAMINOPHEN WITH CODEINE #3 TABLET ONE (17:21)
[2019-12-23] MEDS: ACETAMINOPHEN WITH CODEINE #3 TABLET PO PRN ×2 (17:23→21:24)
--- NOTE | 2019-12-23 17:36 | Delivery Summary ---
Del Sum A-C Datetime Report Generated by CPN: 12/23/2019 17:36 DELIVERY PERSONNEL DELIVERY PERSONNEL: [id number] Delivery Doctor:: Juancarlos Maloney MD Labor and Delivery Nurse:: Nicole Cervantes RNpatient access specialist Nurse:: Dave Good RN Nursery Nurse:: Katerina Hoffman RN Link Trainer Maintenance Man/PRACTICE OFFICE ASSOCIATE: Ashlyn Ross, ST MATERNAL INFORMATION Delivery Anesthesia: Epidural Medications After Delivery: Pitocin 30 Units in 500ml NS/D5W Delivery QBL: 250 Maternal Complications: None; Prolonged Second Stage > 2 Hrs LABOR SUMMARY EDC: 12/29/2019 00:00 No. Babies in Womb: 1 Attempted: No Labor Anesthesia: Epidural LABOR INFORMATION Reason for Induction: Pre-Eclampsia Onset of Labor: 12/22/2019 19:24 Complete Dilatation: 12/23/2019 12:00 Cervical Ripening Agents: Cervidil Oxytocin: Induction Group B Beta Strep: POSITIVE Antibiotics # of Doses: 7 Antibiotics Time of Last Dose: 1130 Name of Antibiotic Given: PCN Steroids Given: None Reason Steroids Not Administered: Not Applicable MEMBRANES Membranes Rupture Method: Artificial Rupture of Membranes: 12/22/2019 19:24 Length of Rupture (hr): 20.20 Amniotic Fluid Color: Clear Amniotic Fluid Amount: Moderate Amniotic Fluid Odor: Normal STAGES OF LABOR Stage 1 hr: 16 Stage 1 min: 36 Stage 2 hr: 3 Stage 2 min: 36 Stage 3 hr: 0 Stage 3 min: 2 Total Time in Labor hr: 20 Total Time in Labor min: 14 VAGINAL DELIVERY Episiotomy: None Laceration #1: Vaginal Laceration Repair: Yes Laceration Repair Note: 2=0 vicryl Sponge Count Correct: Yes Sharps Count Correct: Yes CSECTION DELIVERY Primary Indication: N/A Secondary Indication: N/A CSection Incidence: N/A Labor: N/A Elective: N/A CSection Incision: N/A BABY A INFORMATION Delivery Date/Time: 12/23/2019 15:36 Method of Delivery: Vaginal Nurse Controlled Delivery: No Born in Route : No : N/A Forceps: N/A Vacuum Extraction: N/A Shoulder Dystocia : No PRESENTATION/POSITION BABY A Presentation: Cephalic Cephalic Presentation: Vertex Vertex Position: Right Occipital Anterior Breech Presentation: N/A PLACENTA INFORMATION BABY A Placenta Delivery Time : 12/23/2019 15:38 Placenta Method of Delivery: Spontaneous Placenta Status: Delivered SCORES BABY A Heart Rate 1 min: >100 bpm Resp Effort 1 min: Good Cry Reflex Irritability 1 min: Cough or Sneeze or Pulls Away Muscle Tone 1 min: Active Motion Color 1 min: Blue/Pale Resuscitation Effort 1 min: Tactile Stimulation SCORE 1 MIN: 8 Heart Rate 5 min: >100 bpm Resp Effort 5 min: Good Cry Reflex Irritability 5 min: Cough or Sneeze or Pulls Away Muscle Tone 5 min: Active Motion Color 5 min: Body [place], Extremities Blue Resuscitation Effort 5 min: N/A SCORE 5 MIN: 9 INFANT INFORMATION BABY A Gestational Age at Delivery: 39.1 Gestational Status: Full Term- 39- 40.6 Weeks Outcome : Liveborn Condition : Stable Infant Sex: Male IDENTIFICATION BABY A Verification Date/Time: 12/23/2019 16:25 ID Band Number: [id number] Mother's Name Verified: Yes RN Verifying : Dave Good, MICHAEL Additional Verifying Personnel: Nicole Cervantes RN WEIGHT/LENGTH BABY A Birthweight (gm): 3314 Weight (lb): 7 Infant Weight (oz): 5 Infant Length (in): 19.50 Length (cm): 49.53 CORD INFORMATION BABY A No. Cord Vessels: 3 Nuchal Cord : N/A Cord Blood Taken: Yes-For Storage (Mom's Blood type +) Infant Suction: None ASSESSMENT BABY A Infant Complications: None Physical Findings at Delivery: Molding of the Head Respirations: Appears Normal Skin to Skin: Yes [employer] Called : No Care By: Natasha Hoffman RN Transferred To: Remains with Mother BABY B INFORMATION : N/A SIGNATURES Signature: with User ID: [email or web address]
[2019-12-23] MEDS: DOCUSATE SODIUM 100 MG CAPSULE PO SCH ×2 (19:49→19:51)
[2019-12-23] MEDS: FERROUS SULFATE 325 MG TABLET PO SCH ×2 (19:49→19:51)
[2019-12-23] MEDS ORDERED: MISOPROSTOL 0.2 MG TABLET PR ONE (21:30)
[2019-12-23] MEDS: FAMOTIDINE 20 MG TABLET PO SCH (23:01)
[2019-12-23] MEDS: IBUPROFEN 800 MG TABLET PO SCH (23:01)
[2019-12-24] MEDS: ACETAMINOPHEN WITH CODEINE #3 TABLET PO PRN ×2 (01:38→09:12)
[2019-12-24] MEDS ORDERED: CEFTRIAXONE 1 GM/D5W RTU 1 GM/50 ML RTUPB IV ONE ×3 (04:40→16:42)
[2019-12-24] MEDS ORDERED: CEFTRIAXONE 1 GM/D5W RTU 1 GM/50 ML RTUPB IV PRN (05:00)
[2019-12-24] MEDS: IBUPROFEN 800 MG TABLET PO SCH ×3 (05:38→22:20)
[2019-12-24 06:33] LABS: HEMATOCRIT 26.2 % (36.0-47.0); HEMOGLOBIN 8.9 g/dL (12.0-15.5); MEAN CORPUSCULAR HEMOGLOBIN 32.3 pg (27.0-33.4); MEAN CORPUSCULAR HGB CONC 34.1 g/dL (32.0-36.0); MEAN CORPUSCULAR VOLUME 95 fl (80-97); PLATELET COUNT 108 10^3/uL (150-450); RED BLOOD COUNT 2.76 10^6/uL (3.72-5.28); RED CELL DISTRIBUTION WIDTH 15.5 % (11.5-14.0); WHITE BLOOD COUNT 14.7 10^3/uL (4.0-10.5)
[2019-12-24] MEDS: DOCUSATE SODIUM 100 MG CAPSULE PO SCH ×2 (09:12→17:23)
[2019-12-24] MEDS: FERROUS SULFATE 325 MG TABLET PO SCH ×2 (09:12→17:23)
[2019-12-24] MEDS: SENNOSIDES/DOCUSATE 8.6-50 MG 1 EACH TABLET PO SCH (09:12)
[2019-12-24] MEDS: GUAIFENESIN 600 MG TABLET.SA PO SCH ×2 (09:12→22:20)
[2019-12-24] MEDS: PRENATAL VITAMIN W DHA CAPSULE PO SCH (09:12)
[2019-12-24] MEDS: FAMOTIDINE 20 MG TABLET PO SCH ×2 (09:12→22:20)
--- NOTE | 2019-12-24 11:58 | PDOC PROGRESS REPORT ---
Subjective-OB Progress Note for:: 12/24/19 Subjective: reports bleeding slowing, pain controlled with current meds. denies needs Physical Exam (OB) Vital Signs: Temp Pulse Resp BP Pulse Ox 98.1 F 95 16 114/72 98 12/24/19 04:22 12/24/19 04:22 12/24/19 04:22 12/24/19 04:22 12/24/19 04:22 Intake & Output 12/23/19 12/24/19 12/25/19 06:59 06:59 06:59 Intake Total 2411 50 Balance 2411 50 - Abdomen Description: Soft, Round Hernia Present: No Fundal Description: Firm, Midline Fundal Height: u/u - u/2 - Abdominal Distension: No distension Tenderness: Nontender Objective-Diagnostic Laboratory: 12/24/19 06:13 12/22/19 11:58 12/24/19 12/24/19 06:13 06:13 WBC 14.7 H RBC 2.76 L Hgb 8.9 L Hct 26.2 L MCV 95 MCH 32.3 MCHC 34.1 RDW 15.5 H Plt Count 108 L Blood Type O NEGATIVE Assessment and Plan(PN) - Assessment and Plan (1) Gestational thrombocytopenia Qualifiers: Trimester: unspecified trimester Qualified Code(s): O99.119 - Other diseases of the blood and blood-forming organs and certain disorders involving the immune mechanism complicating , unspecified trimester; D69.6 - Thrombocytopenia, unspecified Is this a current diagnosis for this admission?: Yes (2) Preeclampsia Qualifiers: Trimester: third trimester Qualified Code(s): O14.93 - Unspecified pre- eclampsia, third trimester Is this a current diagnosis for this admission?: Yes (3) Normal vaginal delivery Is this a current diagnosis for this admission?: Yes (4) ADHD Qualifiers: Attention deficit-hyperactivity disorder type: unspecified Qualified Code(s): F90.9 - Attention-deficit hyperactivity disorder, unspecified type Is this a current diagnosis for this admission?: Yes - Time Spent with Patient Time with patient: Less than 15 minutes - Disposition Anticipated Discharge Disposition: Home, Self Care Anticipated Discharge Timeframe: within 24 hours
[2019-12-25] MEDS: IBUPROFEN 800 MG TABLET PO SCH ×2 (05:45→14:00)
[2019-12-25] MEDS: MAG HYDROX/AL HYDROX/SIMETH SUSP 30 ML UDCUP PO PRN (05:45)
--- NOTE | 2019-12-25 10:49 | PDOC DISCHARGE SUMMARY ---
Impression - Admit/DC Date/PCP Admission Date/Primary Care Provider: 12/21/19 20:16 Discharge Date: 12/25/19 - Discharge Diagnosis (1) ADHD Is this a current diagnosis for this admission?: Yes (2) Gestational thrombocytopenia Is this a current diagnosis for this admission?: Yes (3) Normal vaginal delivery Is this a current diagnosis for this admission?: Yes (4) Preeclampsia Is this a current diagnosis for this admission?: Yes - Additional Information Resuscitation Status: Full Code Discharge Diet: Regular Discharge Activity: Balance Activity w/Rest, Pelvic Rest Prescriptions: Ibuprofen [Motrin 800 mg Tablet] 800 mg PO Q8HP PRN #60 tablet PRN Reason: Home Medications: Vits96/Iron Fum/Folic [ Tablet] 1 each PO DAILY 09/15/19 Lisdexamfetamine Dimesylate [Vyvanse] 1 tab PO DAILY 12/15/19 Acetaminophen [Pain Relief] 500 mg PO Q6 12/21/19 Ibuprofen [Motrin 800 mg Tablet] 800 mg PO Q8HP PRN #60 tablet 12/25/19 HPI Reason(s) for Admission: Induction of Labor, PIH Procedures: NST Intrapartum Procedure(s): Spontaneous Vaginal Delivery Complication(s): Laceration-Vaginal Laceration-Degree: 1st Results Laboratory Results: WBC 14.7 10^3/uL (4.0-10.5) H 12/24/19 06:13 RBC 2.76 10^6/uL (3.72-5.28) L 12/24/19 06:13 Hgb 8.9 g/dL (12.0-15.5) L 12/24/19 06:13 Hct 26.2 % (36.0-47.0) L 12/24/19 06:13 MCV 95 fl (80-97) 12/24/19 06:13 MCH 32.3 pg (27.0-33.4) 12/24/19 06:13 MCHC 34.1 g/dL (32.0-36.0) 12/24/19 06:13 RDW 15.5 % (11.5-14.0) H 12/24/19 06:13 Plt Count 108 10^3/uL (150-450) L 12/24/19 06:13 Lymph % (Auto) 18.4 % (13-45) 12/22/19 11:58 [place] % (Auto) 8.9 % (3-13) 12/22/19 11:58 Eos % (Auto) 0.2 % (0-6) 12/22/19 11:58 Baso % (Auto) 0.2 % (0-2) 12/22/19 11:58 Absolute Neuts (auto) 8.8 10^3/uL (1.7-8.2) H 12/22/19 11:58 Absolute Lymphs (auto) 2.2 10^3/uL (0.5-4.7) 12/22/19 11:58 Absolute Monos (auto) 1.1 10^3/uL (0.1-1.4) 12/22/19 11:58 Absolute Eos (auto) 0.0 10^3/uL (0.0-0.6) 12/22/19 11:58 Absolute Basos (auto) 0.0 10^3/uL (0.0-0.2) 12/22/19 11:58 Total Counted 100 12/21/19 20:57 Seg Neutrophils % 72.3 % (42-78) 12/22/19 11:58 Seg Neuts % (Manual) 79 % (42-78) H 12/21/19 20:57 Band Neutrophils % 1 % (3-5) L 12/21/19 20:57 Lymphocytes % (Manual) 15 % (13-45) 12/21/19 20:57 Monocytes % (Manual) 5 % (3-13) 12/21/19 20:57 Eosinophils % (Manual) 0 % (0-6) 12/21/19 20:57 Basophils % (Manual) 0 % (0-2) 12/21/19 20:57 Abs Neuts (Manual) 9.6 10^3/uL (1.7-8.2) H 12/21/19 20:57 Abs Lymphs (Manual) 1.8 10^3/uL (0.5-4.7) 12/21/19 20:57 Abs Monocytes (Manual) 0.6 10^3/uL (0.1-1.4) 12/21/19 20:57 Absolute Eos (Manual) 0.0 10^3/uL (0.0-0.6) 12/21/19 20:57 Abs Basophils (Manual) 0.0 10^3/uL (0.0-0.2) 12/21/19 20:57 Platelet Comment DECREASED 12/21/19 20:57 Anisocytosis SLIGHT 12/21/19 20:57 Sodium 133.7 mmol/L (137-145) L 12/22/19 11:58 Potassium 3.7 mmol/L (3.6-5.0) 12/22/19 11:58 Chloride 110 mmol/L (98-107) H 12/22/19 11:58 Carbon Dioxide 17 mmol/L (22-30) L 12/22/19 11:58 Anion Gap 7 (5-19) 12/22/19 11:58 BUN 5 mg/dL (7-20) L 12/22/19 11:58 Creatinine 0.44 mg/dL (0.52-1.25) L 12/22/19 11:58 Est GFR ( Amer) > 60 (>60) 12/22/19 11:58 Est GFR (MDRD) Non-Af > 60 (>60) 12/22/19 11:58 Glucose 84 mg/dL (75-110) 12/22/19 11:58 Uric Acid 3.1 mg/dL (2.5-6.2) 12/22/19 11:58 Calcium 9.0 mg/dL (8.4-10.2) 12/22/19 11:58 Total Bilirubin 0.3 mg/dL (0.2-1.3) 12/22/19 11:58 Direct Bilirubin 0.0 mg/dL (0.0-0.4) 12/22/19 11:58 Neonat Total Bilirubin Not Reportable 12/22/19 11:58 Neonat Direct Bilirubin Not Reportable 12/22/19 11:58 Neonat Indirect Bili Not Reportable 12/22/19 11:58 AST 30 U/L (14-36) 12/22/19 11:58 ALT 21 U/L (<35) 12/22/19 11:58 Alkaline Phosphatase 174 U/L (38-126) H 12/22/19 11:58 Lactate Dehydrogenase 189 U/L (120-246) 12/22/19 11:58 Total Protein 6.1 g/dL (6.3-8.2) L 12/22/19 11:58 Albumin 3.2 g/dL (3.5-5.0) L 12/22/19 11:58 Urine Color STRAW 12/21/19 21:30 Urine Appearance CLEAR 12/21/19 21:30 Urine pH 7.0 (5.0-9.0) 12/21/19 21:30 Ur Specific [place] 1.006 12/21/19 21:30 Urine Protein NEGATIVE mg/dL (NEGATIVE) 12/21/19 21:30 Urine Glucose (UA) >=500 mg/dL (NEGATIVE) H 12/21/19 21:30 Urine Ketones NEGATIVE mg/dL (NEGATIVE) 12/21/19 21:30 Urine Blood SMALL (NEGATIVE) H 12/21/19 21:30 Urine Nitrite NEGATIVE (NEGATIVE) 12/21/19 21:30 Urine Bilirubin NEGATIVE (NEGATIVE) 12/21/19 21:30 Urine Urobilinogen NEGATIVE mg/dL (<2.0) 12/21/19 21:30 Ur Leukocyte Esterase TRACE (NEGATIVE) H 12/21/19 21:30 Urine Ascorbic Acid NEGATIVE (NEGATIVE) 12/21/19 21:30 Urine Opiates Screen NEGATIVE 12/21/19 21:30 Urine Methadone Screen NEGATIVE 12/21/19 21:30 Ur Barbiturates Screen UNCONFIRMED POSITIVE 12/21/19 21:30 Ur Phencyclidine Scrn NEGATIVE 12/21/19 21:30 Ur Amphetamines Screen UNCONFIRMED POSITIVE 12/21/19 21:30 U Benzodiazepines Scrn NEGATIVE 12/21/19 21:30 Urine Cocaine Screen NEGATIVE 12/21/19 21:30 U Marijuana (THC) Screen NEGATIVE 12/21/19 21:30 RPR NONREACTIVE (NONREACTIVE) 12/21/19 20:57 Blood Type O NEGATIVE 12/24/19 06:13 Antibody Screen POSITIVE 12/21/19 20:57 Antibody Identification RHOGAM INDUCED ANTI-D 12/21/19 20:57 Screen NEGATIVE 12/24/19 06:13 Plan Plan of Treatment: f/u at [facility] 4 wks Time Spent: Less than 30 Minutes
[2019-12-25] MEDS: DOCUSATE SODIUM 100 MG CAPSULE PO SCH (11:19)
[2019-12-25] MEDS: SENNOSIDES/DOCUSATE 8.6-50 MG 1 EACH TABLET PO SCH (11:20)
[2019-12-25] MEDS: FAMOTIDINE 20 MG TABLET PO SCH (11:20)
[2019-12-25] MEDS: FERROUS SULFATE 325 MG TABLET PO SCH (11:20)
[2019-12-25] MEDS: GUAIFENESIN 600 MG TABLET.SA PO SCH (11:20)
[2019-12-25] MEDS: PRENATAL VITAMIN W DHA CAPSULE PO SCH (11:20)
[2019-12-25 15:51] VITALS: BP 125/81
== END 2019-12-25 16:30 | disposition home or self-care (01) | DRG 806 ==
LOC: LR 20:16 → 2N 12-23 18:09
PROVIDERS: ADMIT Obstetrics & Gynecology; ATTEND Obstetrics & Gynecology
PROC: 10907ZC Drainage of Amniotic Fluid, Therapeutic from Products of Conception, Via Natural or Artificial Opening (ICD-10-PCS; 2019-12-22)
PROC: 3E033VJ Introduction of Other Hormone into Peripheral Vein, Percutaneous Approach (ICD-10-PCS; 2019-12-22)
PROC: 10E0XZZ Delivery of Products of Conception, External Approach (ICD-10-PCS; principal; 2019-12-23)
PROC: 0HQ9XZZ Repair Perineum Skin, External Approach (ICD-10-PCS; 2019-12-23)
PROC: 3E0234Z Introduction of Serum, Toxoid and Vaccine into Muscle, Percutaneous Approach (ICD-10-PCS; 2019-12-24)
DX: O14.04 Mild to moderate pre-eclampsia, complicating childbirth (principal); O99.12 Other diseases of the blood and blood-forming organs and certain disorders involving the immune mechanism complicating childbirth; Z37.0 Single live birth; F90.9 Attention-deficit hyperactivity disorder, unspecified type; O99.344 Other mental disorders complicating childbirth; O70.0 First degree perineal laceration during delivery; O99.824 Streptococcus B carrier state complicating childbirth; D69.6 Thrombocytopenia, unspecified; O26.893 Other specified pregnancy related conditions, third trimester; Z67.41 Type O blood, Rh negative; O99.334 Smoking (tobacco) complicating childbirth; F17.210 Nicotine dependence, cigarettes, uncomplicated; O63.1 Prolonged second stage (of labor); Z3A.39 39 weeks gestation of pregnancy
CPT/HCPCS: 1967; 36415; 59025; 80053; 80307; 81005; 83615; 84550; 85025; 85027; 85461; 86592; 86850; 86870; 86900; 86901; 94760; C1758; J0696; J2270; J2405; J2540; J2550; J2590; J2790; J2795; J3010; J3490; J7060

== ENCOUNTER 2020-01-07 13:31 | Emergency (ER) | payer MEDICAID ==
--- NOTE | 2020-01-07 14:17 | ER Document Report ---
ED Medical Screen (RME) - General Chief Complaint: Medical Complaint Stated Complaint: SUTURE ISSUES Time Seen by Provider: 01/07/20 14:14 Mode of Arrival: Ambulatory Information source: Patient Notes: 29-year-old female presents to ED for complaint of pain in her episiotomy. She states she is continuing to have pain in the area. She states she saw her RESOURCE SPECIALIST on Wednesday and they told her it was not stitched properly but it was healing so they were not going to mess with it. She states she continues to have pain. She states she is having some yellow drainage from the area. She will need a complete exam. She states Dr. Maloney delivered her child in December 22. I have greeted and performed a rapid initial assessment of this patient. A comprehensive ED assessment and evaluation of the patient, analysis of test results and completion of medical decision making process will be conducted by an additional ED providers. TRAVEL OUTSIDE OF THE [place] IN LAST 30 DAYS: No - Related Data Allergies/Adverse Reactions: No Known Allergies Allergy (Verified 01/07/20 14:14) Past Medical History Neurological Medical History: Reports: Hx Migraine Renal/ Medical History: Denies: Hx Peritoneal Dialysis Psychiatric Medical History: Reports: Hx Depression - Immunizations Hx Diphtheria, Pertussis, Tetanus Vaccination: No Physical Exam - Vital signs Vitals: Temp Pulse Resp BP Pulse Ox 98.7 F 103 H 18 137/83 H 100 01/07/20 13:40 01/07/20 13:40 01/07/20 13:40 01/07/20 13:40 01/07/20 13:40 Course - Vital Signs Vital signs: Temp Pulse Resp BP Pulse Ox 98.7 F 103 H 18 137/83 H 100 01/07/20 13:40 01/07/20 13:40 01/07/20 13:40 01/07/20 13:40 01/07/20 13:40
--- NOTE | 2020-01-07 15:37 | ER Document Report ---
ED General - General Chief Complaint: Medical Complaint Stated Complaint: SUTURE ISSUES Time Seen by Provider: 01/07/20 14:14 Mode of Arrival: Ambulatory TRAVEL OUTSIDE OF THE [place] IN LAST 30 DAYS: No - HPI Notes: 29yo F presents with vaginal pain. patient had on Dec 22, had episiomoty. states she has concerns it is not healing properly. states that she has continuous pain mostly to the right side of her vagina, worse when sitting down or wiping. she has tried cooling pads and foam without relief. saw OBGYN last Wednesday (6dago) and was prescribed oxcodone which is the only thing that helps. she is concern for a yellow discharge and odor. has been having "rando bleeding", described as "red slime" which happens about once a day. she denies fever or chills. denies abdominal pain or cramping. she has not had intercourse. currently breast feeding. - Related Data Allergies/Adverse Reactions: No Known Allergies Allergy (Verified 01/07/20 14:14) Home Medications: pain medication Past Medical History - General Information source: Patient - Social History Smoking Status: Never Smoker Chew tobacco use (# tins/day): No Frequency of alcohol use: None Drug Abuse: None Family History: Reviewed & Not Pertinent Patient has homicidal ideation: No Neurological Medical History: Reports: Hx Migraine Renal/ Medical History: Denies: Hx Peritoneal Dialysis Psychiatric Medical History: Reports: Hx Depression Past Surgical History: Reports: Hx Oral Surgery - wisdom teeth removal - Immunizations Hx Diphtheria, Pertussis, Tetanus Vaccination: No Review of Systems - Review of Systems Constitutional: denies: Fever EENT: No symptoms reported Cardiovascular: No symptoms reported Respiratory: No symptoms reported Gastrointestinal: No symptoms reported Genitourinary: Burning Female Genitourinary: See HPI Musculoskeletal: No symptoms reported Skin: No symptoms reported Hematologic/Lymphatic: No symptoms reported Neurological/Psychological: No symptoms reported Physical Exam - Vital signs Vitals: Temp Pulse Resp BP Pulse Ox 98.7 F 103 H 18 137/83 H 100 01/07/20 13:40 01/07/20 13:40 01/07/20 13:40 01/07/20 13:40 01/07/20 13:40 Interpretation: Normal - General General appearance: Appears well In distress: None - HEENT Head: Normocephalic, Atraumatic Extraocular movements intact: Yes Pupils: PERRL - Respiratory Breath sounds: Normal - Cardiovascular Rhythm: Regular Heart sounds: Normal auscultation - Abdominal Inspection: No: Gravid female Distension: No distension Bowel sounds: Normal Tenderness: Nontender - Genitourinary Notes: Exam performed with nurse shell reprint operator. There are visible sutures with some surrounding erythema, she does have tenderness here, there is some scant dischar ge though not expressible from the suture line hick self. She does have a vaginal discharge present. - Extremities General upper extremity: Normal ROM General lower extremity: Normal ROM - Neurological Neuro grossly intact: Yes Cognition: Normal Orientation: AAOx4 - Psychological Associated symptoms: Normal affect - Skin Skin Temperature: Warm Course - Re-evaluation Re-evalutation: 01/07/20 16:02 29yo F s/p 16d ago here with pain to episiomoty site, ongoing since delivery, now with malodorus discharge. non toxic appearing, afebrile, abdomen/suprapubic area is non tender. will perform pelvic exam to eval for possible infection or to see if obvious fistula is present. UTI possible. would have a low suspicion for endometritis at this time given no tenderness. 01/07/20 16:03 01/07/20 17:31 pelvic exam performed with nurse shell reprint operator. no erythema or induration to vulva. blue sutures present to base of vault, there is some erythema and swelling, discharge present in vault, no expressible drainage from surcigal site. there was additionally a blood tinged discharge present which was swabbed and sent for culture. given the appearance of the wound and possible reaction to sutures, will rx clindamycin. Patient has follow-up with OB this upcoming week. Have also provided short course of [place] as well. Stable at time of discharge. Return precautions given. - Vital Signs Vital signs: Temp Pulse Resp BP Pulse Ox 98.0 F 92 16 117/81 98 01/07/20 18:06 01/07/20 18:06 01/07/20 18:06 01/07/20 18:06 01/07/20 18:06 - Laboratory Laboratory results interpreted by me: 01/07/20 14:29 Urine Blood SMALL H Ur Leukocyte Esterase LARGE H Discharge - Discharge Clinical Impression: Vaginal irritation Disposition: HOME, SELF-CARE Prescriptions: Hydrocodone/Acetaminophen [[place] 5-325 mg Tablet] 1 tab PO Q4HP PRN #12 tablet PRN Reason: For Pain Clindamycin HCl 300 mg PO TID #30 capsule
[2020-01-07] MEDS ORDERED: HYDROCODONE/ACETAMINOPHEN 5-325 MG TABLET PO ONE (15:53)
[2020-01-07 17:05] LABS: APPEARANCE,URINE SLIGHTLY-CLOUDY; BILIRUBIN,URINE NEGATIVE (NEGATIVE); COLOR,URINE YELLOW; GLUCOSE, URINE NEGATIVE (NEGATIVE); KETONES,URINE NEGATIVE (NEGATIVE); LEUKOCYTE ESTERASE,URINE LARGE (NEGATIVE); NITRITE,URINE NEGATIVE (NEGATIVE); PROTEIN,URINE NEGATIVE (NEGATIVE); URINE SPECIFIC GRAVITY 1.009; UROBILINOGEN,URINE NEGATIVE mg/dL (<2.0)
[2020-01-07 17:48] LABS: BACTERIA (WET MOUNT) 4+ BACTERIA SEEN; RBCS (WET MOUNT) 3+ RBCS SEEN; T.VAGINALIS (WET MOUNT) NO TRICHOMONAS SEEN; WBCS (WET MOUNT) 4+ WBCS SEEN; YEAST (WET MOUNT) NO YEAST SEEN
[2020-01-07 18:08] VITALS: BP 117/81
[2020-01-07 19:12] LABS: CHLAM PCR NOT DETECTED (NOT DETECT)
== END 2020-01-07 18:09 | disposition home or self-care (01) ==
LOC: ER 13:31
DX: O99.89 Other specified diseases and conditions complicating pregnancy, childbirth and the puerperium (principal); R10.2 Pelvic and perineal pain; Z79.899 Other long term (current) drug therapy
CPT/HCPCS: 36415; 81001; 87070; 87077; 87205; 87210; 87491; 87591; 99284